=== PATIENT | female | born 1930 | race Caucasian/White ===

== ENCOUNTER 2016-10-01 13:29 | Emergency (ER) | payer MEDICARE, OTHER ==
[~2016-10-01] VITALS: Ht 167.6 cm; Wt 69.0 kg
[~2016-10-01 13:29] MED LIST: ASPI-110 PO; ATOR40TA16 PO; CALC500T42 PO; COEN1CAP PO; FISH1000 PO; HYDR-3533 PO; LISI2.5T3 PO; PROP50TA2 PO
[2016-10-01 13:32] VITALS: BP 138/73; PULSE 86; RESP 18; TEMP 97.6; O2SAT 97
[2016-10-01] MEDS ORDERED: TETANUS/DIPHTHERIA TOXOID ADULT 0.5 ML VIAL IM ONE (14:00)
[2016-10-01] MEDS ORDERED: BUPIVACAINE HCL PF 0.5% 10 ML VIAL INFIL ONE (14:00)
[2016-10-01] MEDS ORDERED: LIDOCAINE HCL 1% 50 ML VIAL INFIL ONE (14:00)
--- NOTE | 2016-10-01 14:00 | PD ---
HPI Chief Complaint: Injury Time Seen by Provider: 13:55 Travel History International Travel<30 days: No Contact w/Intl Traveler<30days: No Traveled to known affect area: No History of Present Illness HPI Patient is an 86-year-old female presenting with right wrist pain after fall. She states she was walking between a car and washing machine when she slipped on a rug and fell. She is unsure the exact mechanism of the hand injury but she has pain in the wrist on the radial side. Some pain in the dorsum of the second third metacarpals and has a laceration over the PIP joint of the second finger of the right hand. Reduced range of motion in the wrist secondary to pain but no range of motion loss in the finger. No elbow or shoulder pain. She denies any weakness or paresthesia. She states she also hit the right side of her head on the washing machine on the way down. She denies loss of consciousness takes aspirin 81 mg daily. She denies any weakness, nausea, vomiting, headache, dizziness, vision change. She denies any neck pain or denies any weakness or paresthesias in her extremity's. Last tetanus vaccine was greater than 5 years. PFSH Past Medical History Hx Anticoagulant Therapy: Yes (BABY ASPIRIN) Autoimmune Disease: No Blood Disorders: No Cancer: Yes (COLON CA 1998) Cardiovascular Problems: No High Cholesterol: Yes Chemotherapy: No Cerebrovascular Accident: No Diabetes: No Diminished Hearing: Yes Endocrine: No Genitourinary: No Hepatitis: Yes ( CHILD) Hiatal Hernia: No Hypertension: Yes Immune Disorder: No Musculoskeletal: Yes (LUMBAR STENOSIS, HERNIATED DISC, OSTEOARTHRITIS) Neurologic: No Psychiatric: No Reproductive: No Respiratory: Yes (COPD) Immunizations Current: Yes Thyroid Disease: Yes (HYPERACTIVE) Tetanus Vaccination: > 5 Years Influenza Vaccination: Yes ?: Not Menopausal: Yes Past Surgical History Abdominal Surgery: Yes (COLON RESECTION, APPENDECTOMY, EXP LAPORATORY) AICD: No Appendectomy: Yes Body Medical Devices: DENTAL IMPLANTS Cardiac Surgery: No Ear Surgery: No Endocrine Surgery: No Eye Surgery: Yes (PIOTR CATARACTS) Genitourinary Surgery: No Gynecologic Surgery: No Hysterectomy: Yes (Partial) Joint Replacement: Yes (RIGHT AND LEFT THR) Oral Surgery: No Pacemaker: No Thoracic Surgery: No Other Surgery: Yes (BILAT HAND) Social History Alcohol Use: No Tobacco Use: No (FORMER) Substance Use: No Allergies-Medications (Allergen,Severity, Reaction): Coded Allergies: No Known Allergies (Verified , 10/01/16) Reported Meds & Prescriptions Reported Meds & Active Scripts Active Lortab (Hydrocodone-Acetaminophen) 5-325 Mg Tab 1 Tab PO Q6H PRN Reported Co Q-10 (Coenzyme Q10 (Ubidecarenone)) 100 Mg Cap 1 Tab PO DAILY Atorvastatin (Atorvastatin Calcium) 40 Mg Tab 40 Mg PO HS Calcium 500 Mg Tab 500 Mg PO DAILY Fish Oil (Cressey-3 Fatty Acids) 1,000 Mg Cap 1 Mg PO DAILY Aspirin 81 (Aspirin) 81 Mg Tabdr 81 Mg PO DAILY Lisinopril 2.5 Mg Tab 2.5 Mg PO DAILY Propylthiouracil 50 Mg Tab 50 Mg PO BID Review of Systems Except as stated in HPI: all other systems reviewed are Neg Physical Exam Narrative GENERAL: Well-developed and well-nourished adult female in no acute distress. SKIN: Occasional minor ecchymosis of bilateral upper extremities. Warm and dry. Good turgor without tenting. HEAD: Normocephalic and atraumatic. Negative huang or raccoon sign. No tenderness, crepitus or step-offs to palpation of the skull. EYES: PERRL bilaterally, 5mm. EOMI bilaterally. No injection or icterus present. No proptosis. Lids without edema or erythema. ENT: Bilateral ear canals are non-edematous/non-erythematous without otorrhea. Bilateral TMs have intact landmarks and without hemotympanum, distortion, perforation, air-fluid level or erythema. Nasal mucosa pink and moist without discharge, septum intact and midline. Buccal mucosa pink and moist. Oropharynx free of erythema, tonsillar hypertrophy, masses, swelling, asymmetry and exudates. Uvula midline and airway patent. NECK: Supple, no midline tenderness, crepitus or step-offs. Normal range of motion. Trachea midline, no JVD. No cervical or facial lymphadenopathy. CARDIOVASCULAR: Regular rate and rhythm without murmurs, rubs, clicks or gallops. Radial pulses 2+ bilaterally. Capillary refill less than 2 seconds distal tip of all fingers of right hand. RESPIRATORY: Clear to auscultation bilaterally with symmetrical rise and fall, no distress or use of accessory muscles. MUSCULOSKELETAL: Patient has some edema dorsum of the right wrist without obvious deformity also ecchymosis over the wrist and the proximal second and third metacarpals. Wrist range of motion in the wrist secondary pain. Diffuse pain with palpation, primarily over the radial aspect of the wrist. No scaphoid tenderness. She can freely move all fingers of the right hand. She has a 1.5 centimeter superficial laceration overlying the dorsal PIP joint of the second digit right hand. Shallow, no foreign bodies or active bleeding. No visible bone or tendon. She can freely flex and extend the digit without difficulty. The pain with palpation of the right elbow or shoulder has normal range of motion at same. Extremities without clubbing or cyanosis. No obvious deformities. NEUROLOGIC: CN II-XII grossly intact. Awake and alert. Strength 5/5 bilateral wrist flexion, wrist extension and flexion extension of all 5 fingers of the right hand. Sensation intact to the distal tip of all fingers of right hand.Sensation intact and strength 5/5 over radial, median, and ulnar nerve distributions bilaterally. Normal speech. PSYCHIATRIC: Appropriate mood and affect; insight and judgment normal. Data Data Last Documented VS Vital Signs Date Time Temp Pulse Resp B/P Pulse Ox O2 Delivery O2 Flow Rate FiO2 10/01/16 13:47 86 18 97 Room Air 10/01/16 13:32 97.6 138/73 Orders Bupivacaine Pf 0.5% Inj (Marcaine Pf 0.5 (10/01/16 14:00) Lidocaine 1% Inj (50 Ml) (Xylocaine 1% I (10/01/16 14:00) Tetanus/Diphtheria Tox Adult (Tetanus/Di (10/01/16 14:00) Hand, Complete ([id number]) (10/01/16 13:52) Wrist, Complete ([id number]) (10/01/16 13:52) Ct Brain W/O Iv Contrast(Rout) (10/01/16 13:52) Splint Or Brace Apply/Monitor (10/01/16 15:27) MDM Medical Decision Making Medical Screen Exam Complete: Yes Emergency Medical Condition: Yes Interpretation(s) Last [address] 10/01/16 1352 Signed Impressions: Service Date/Time: Saturday, October 01, 2016 14:47 - CONCLUSION: 1. No evidence of acute intracranial pathology. No masses are identified. Tyrell Tesfaye MD Differential Diagnosis Wrist fracture versus distal radius fracture versus wrist sprain versus contusion versus metacarpal injury versus finger fracture versus finger laceration versus closed head injury versus skull fracture versus intracranial hemorrhage Narrative Course Patient 78-year-old female who suffered a mechanical fall proximal 1.5 hours prior to exam. Suffered injury to the right wrist on the radial side and the metacarpals of the hand as well as the hip joint of the second finger. There is a small superficial laceration requiring repair, see attached procedure narrative. Tetanus vaccine is updated today. Patient declines analgesia. Patient was given Bactrim ice and ordered x-ray of the wrist, hand and finger. Ordered CT of the head given the head injury and aspirin use although she has no complaints or signs of significant head trauma. CT head shows no acute process. An x-ray negative. Wrist x-ray shows a T-shaped distal radius fragment fracture with intra-articular extension. Ulnar styloid fracture as well. I spoke with Dr. Cramer, on-call orthopedist, who recommended sugar tong splint and follow-up palpation. Patient has another orthopedist that she has had multiple hip and knee surgeries in the past and she will follow up with him. Given prescription for Lortab for pain.See discharge paperwork for further instructions. The plan was discussed with the patient who acknowledged their understanding and agreement. Reinforced the follow-up with primary care is critically important. Patient instructed on emergent conditions that should prompt return to ED. Procedures Procedure Narrative LACERATION LOCATION: Dorsal PIP joint of the second finger right hand LENGTH: 1.5 cm SHAPE: Linear NUMBER OF STITCHES/LARRY: 1 horizontal mattress, 4 simple interrupted REPAIR: The area of the laceration was prepped with Betadine and sterilely draped. A digital block was performed with 2.5 cc of a 50-50 mix of 1% lidocaine and 0.5% lidocaine. The wound was copiously irrigated and explored without evidence of foreign body, tendon injury or neurovascular injury. The wound was closed using 6-0 Prolene. This was a single layer repair. A sterile dressing was applied. The patient was advised to keep the dressing clean and dry. Patient tolerated the procedure well. Diagnosis Primary Impression: Distal radius fracture, right Qualified Code: S52.571A - Other closed intra-articular fracture of distal end of right radius, initial encounter Additional Impressions: Fracture of ulnar styloid Qualified Code: S52.614A - Closed nondisplaced fracture of styloid process of right ulna, initial encounter Finger laceration Qualified Code: S61.219A - Finger laceration, initial encounter Patient Instructions: Finger Laceration (ED), General Instructions, Wrist Fracture in Adults (ED) Additional Instructions: Take medications as prescribed Your medications may cause drowsiness. Do not take with alcohol or sedatives. Do not operate a motor vehicle or heavy machinery while on medication. Use caution when walking to avoid falls Apply ice every 1 to 2 hours as needed for pain Keep splint on at all times. Do NOT remove until cleared. Do not get splint wet Avoid maneuvers that aggravate pain Elevate when at rest Keep bandage on for 24 hours then change daily When changing bandage wash area with soap and water Avoid swimming or submerging wound in any water(bath, patel, pool, ocean, etc) Follow-up with PCP in 10-14 days for suture removal Follow-up with orthopedist in one to 2 days for wrist fracture Return to the ED for any acute worsening of symptoms including swelling, warmth , spreading redness, pustular drainage, fever Med/Other Pt SpecificInfo: Prescription(s) given Scripts Hydrocodone-Acetaminophen (Lortab)5-325 Mg Tab1 Tab PO Q6H PRN (PAIN) #12 TAB Ref 0 Prov:Mirlande Alejo MD 10/01/16 Disposition: 01 DISCHARGE HOME Condition: Stable Will Alvarez III Oct 01, 2016 14:00
--- NOTE | 2016-10-01 15:01 | RADHPO ---
EXAM DATE/TIME: 10/01/2016 14:05 [facility] COMPARISON: No previous studies available for comparison. INDICATIONS: Right hand pain with laceration to 2nd digit after fall. MEDICAL HISTORY: None. SURGICAL HISTORY: None. ENCOUNTER: Initial ACUITY: 2 days PAIN SCORE: 8/10 LOCATION: Right hand FINDINGS: There are degenerative changes present in the carpus. There is minimally impacted fracture of distal radius. Ulnar styloid is fractured as well. There is minimal angulation. CONCLUSION: 1. Impacted fracture distal radius with a T-shaped component extending into the radiocarpal joint. 2. Fractured ulnar styloid. 3. Carpus is intact. Jaime Selby MD FACR on October 01, 2016 at 14:47 Board Certified Radiologist. This report was verified electronically.
--- NOTE | 2016-10-01 15:02 | RADHPO ---
EXAM DATE/TIME: 10/01/2016 14:05 [facility] COMPARISON: No previous studies available for comparison. INDICATIONS: Right wrist pain after fall. MEDICAL HISTORY: None. SURGICAL HISTORY: None. ENCOUNTER: Initial ACUITY: 2 days PAIN SCORE: 8/10 LOCATION: Right wrist FINDINGS: Again seen is the T-shaped impacted fracture of distal radius. Ulnar styloid is fractured as well. Carpus is intact. CONCLUSION: Fractured distal radius. Jaime Selby MD FACR on October 01, 2016 at 14:48 Board Certified Radiologist. This report was verified electronically.
--- NOTE | 2016-10-01 15:06 | RADHPO ---
EXAM DATE/TIME: 10/01/2016 14:47 [facility] COMPARISON: No previous studies available for comparison. INDICATIONS : Fall. Right parietal injury. RADIATION DOSE: 60.77 CTDIvol (mGy) MEDICAL HISTORY : Hypertension. Chronic obstructive pulmonary disease. Carcinoma, colon. SURGICAL HISTORY : Appendectomy. Hysterectomy.Orthopedic surgery. ENCOUNTER: Initial ACUITY: 1 day PAIN SCALE: 0/10 LOCATION: Right parietal TECHNIQUE: Multiple contiguous axial images were obtained of the head. Using automated exposure control and adj ustment of the mA and/or kV according to patient size, radiation dose was kept as low as reasonably a chievable to obtain optimal diagnostic quality images. FINDINGS: Noncontrast axial head CT demonstrates the ventricles to be normal in size and configuration with a n ormal sulcal pattern. No acute intracranial hemorrhage, acute cortical infarction, mass or midline sh ift is seen. There is decreased density in the periventricular white matter consistent with small ves светлана vascular disease not unexpected in a patient of this age. Posterior fossa structures are unremark able. Bone windows are unremarkable. CONCLUSION: 1. No evidence of acute intracranial pathology. No masses are identified. Tyrell Tesfaye MD on October 01, 2016 at 15:02 Board Certified Radiologist. This report was verified electronically.
[2016-10-01] MEDS ORDERED: HYDR-3533 PO (15:28)
== END 2016-10-01 15:57 | disposition home or self-care (01) ==
LOC: PHEFT 13:29
DX: S52.501A Unspecified fracture of the lower end of right radius, initial encounter for closed fracture (principal); W01.0XXA Fall on same level from slipping, tripping and stumbling without subsequent striking against object, initial encounter; Y93.89 Activity, other specified; Y92.9 Unspecified place or not applicable
CPT/HCPCS: 12001; 29125; 70450; 73110; 73130; 90471; 90714

== ENCOUNTER → 2017-05-01 | Outpatient (CLI) | payer MEDICARE, OTHER ==
[~2017-05-01] MED LIST changes: +ASPI-99 PO; +CALC1TAB12 PO; +HYDR-3580 PO
[2017-05-01 09:01] LABS: HEMATOCRIT 39.8 % (35.0-46.0); MEAN CELL VOLUME 94.2 FL (80.0-100.0); MEAN CORPUSCULAR HEMOGLOBIN 31.1 PG (27.0-34.0); PLATELET COUNT 282 TH/MM3 (150-450); RED BLOOD COUNT 4.22 MIL/MM3 (4.00-5.30); RED CELL DISTRIBUTION WIDTH 13.2 % (11.6-17.2); REVIEW FLAG FINAL; WHITE BLOOD COUNT 7.3 TH/MM3 (4.0-11.0)
[2017-05-01 09:11] LABS: APTT (PATIENT) 27.7 SEC (24.3-30.1); PROTHROMBIN TIME - PATIENT 10.6 SEC (9.8-11.6)
[2017-05-01 09:22] LABS: BICARBONATE 26.7 MEQ/L (21.0-32.0); POTASSIUM 4.2 MEQ/L (3.5-5.1)
[2017-05-01 10:47] LABS: BLOOD, URINE NEG (NEG); GLUCOSE,URINE NEG (NEG); KETONE, URINE NEG (NEG); NITRITE,URINE NEG (NEG); URINE COLOR YELLOW (YELLW/STRAW)
[2017-05-01 10:49] LABS: COMMENT (UR) CATH-CULT NOT IND; CULTURE IF INDICATED CATH CULTURE NOT IND
--- NOTE | 2017-05-02 10:07 | EKG ---
Date Performed: 05/01/2017 Time Performed: 08:57:22 PTAGE: 86 years EKG: Sinus rhythm WITH OCCASIONAL SUPRAVENTRICULAR PREMATURE COMPLEXES SEPTAL MYOCARDIAL INFARCTION, OF INDETERMINATE AGE ABNORMAL ECG NO PREVIOUS TRACING DOCTOR: Sergey Etienne Interpretating Date/Time 05/02/2017 10:06:10
== END ==
LOC: CPRE 08:11
PROVIDERS: ATTEND Orthopaedic Surgery
DX: Z01.810 Encounter for preprocedural cardiovascular examination (principal); M79.609 Pain in unspecified limb; M17.11 Unilateral primary osteoarthritis, right knee; Z01.812 Encounter for preprocedural laboratory examination
CPT/HCPCS: 36415; 80048; 81001; 85027; 85610; 85730; 93005

== ENCOUNTER 2017-05-11 07:00 | Inpatient (IN) | payer MEDICARE, OTHER ==
[~2017-05-11] VITALS: Ht 167.6 cm; Wt 69.0 kg
[~2017-05-11 07:00] MED LIST changes: -ASPI-99 PO; -CALC500T42 PO; -HYDR-3533 PO; -HYDR-3580 PO
[2017-06-08] MEDS ORDERED: GENTAMICIN SULFATE 80 MG/2 ML VIAL ONE (05:58)
[2017-06-08] MEDS ORDERED: METOPROLOL TARTRATE 25 MG TAB PO PRN (06:00)
[2017-06-08] MEDS ORDERED: INSULIN HUMAN REGULAR 1,000 UNITS/10 ML VIAL SQ PRN (06:00)
[2017-06-08] MEDS ORDERED: SODIUM CHLORID 0.9% 500 ML IV PRN (06:00)
[2017-06-08] MEDS ORDERED: CHLORHEXIDINE GLUCONATE 2 % 1 PACK (2 CLOTHS) TOPICAL PRN (06:00)
[2017-06-08] MEDS ORDERED: ceFAZolin 2 GM PREMIX 50 ML IV SCH (06:00)
[2017-06-08] MEDS ORDERED: LACTATED RINGER'S 1000 ML IV PRN (06:00)
[2017-06-08] MEDS ORDERED: POVIDONE IODINE 5% (ANTISEPSIS KIT) 4 APPLICATIONS EACH NARE PRN (06:00)
[2017-06-08] MEDS ORDERED: CHLORHEXIDINE GLUCONATE 4% SOLN 120 ML BTL TOPICAL SCH (06:00)
[2017-06-08 06:25] LABS: AUTOMATED NEUTROPHIL # 5.1 TH/MM3 (1.8-7.7); BASOPHIL # 0.1 TH/MM3 (0-0.2); BASOPHIL % 1.1 % (0.0-2.0); EOSINOPHIL # 0.2 TH/MM3 (0-0.4); EOSINOPHIL % 1.8 % (0.0-4.0); HEMATOCRIT 40.7 % (35.0-46.0); HEMO FLAGS DIFF FINAL; LYMPH % 27.4 % (9.0-44.0); LYMPHOCYTE # 2.4 TH/MM3 (1.0-4.8); MEAN CELL VOLUME 93.6 FL (80.0-100.0); MEAN CORPUSCULAR HEMOGLOBIN 31.6 PG (27.0-34.0); MEAN CORPUSCULAR HGB CONC 33.7 % (32.0-36.0); MONO % 10.2 % (0.0-8.0); NEUT % 59.5 % (16.0-70.0); PLATELET COUNT 317 TH/MM3 (150-450); RED BLOOD COUNT 4.35 MIL/MM3 (4.00-5.30); WHITE BLOOD COUNT 8.6 TH/MM3 (4.0-11.0)
[2017-06-08] MEDS ORDERED: ACETAMINOPHEN 1000 MG/100 ML 100 ML IV ONE (06:34)
[2017-06-08] MEDS ORDERED: ONDANSETRON HCL 4 MG/2 ML VIAL IVP PRN (06:45)
[2017-06-08] MEDS ORDERED: ACETAMINOPHEN/HYDROcodone 325 MG/7.5 MG TAB PO PRN ×2 (06:45)
[2017-06-08] MEDS ORDERED: MORPHINE SULFATE 4 MG/ML INJ IV PUSH PRN (06:45)
[2017-06-08] MEDS ORDERED: TRANEXAMIC ACID INJ 0 MG in SODIUM CHLORIDE 0.9% INJ 100 ML IV SCH (06:45)
[2017-06-08] MEDS ORDERED: SODIUM CHLORIDE 0.9% FLUSH 5 ML FLUSH IVF PRN (06:45)
[2017-06-08] MEDS ORDERED: Post-op Orders (for Pharmacy) MISC XX ONE (06:45)
--- NOTE | 2017-06-08 06:48 | HHI.FF ---
Face to Face Verification Diagnosis: (1) Primary osteoarthritis of right knee (2) Status post total right knee replacement Physical Therapy Gait training Knee: Total knee, Protocol: Right, Full weight bearing Right LE Weight Bearing: WB as tolerated Right LE Range of Motion: Active ROM (AROM, AAROM, PROM. ROM goal is 0 to 140 degrees. ROM in the OR was 0 to 150 degrees.) Nursing Nursing: Dressing changes Dressing Changes: Daily dressing change, Coverderm/Primapore Additional Instructions Remove steristrips on postop day 14. I have seen patient Minerva Stein on 06/08/17. My clinical findings support the need for the requested home health care services because: Ltd mobility - disease progression Limited ability to care for self High risk of falls I certify that my clinical findings support that this patient is homebound because: Post-op weakness Unsteady gait/balance Unsafe to leave home unassisted Alexandra Victor MD ([facility]) Jun 08, 2017 06:48
[2017-06-08] MEDS ORDERED: TRANEXAMIC ACID IV SCH ×2 (07:00→10:00)
[2017-06-08] MEDS ORDERED: EXPAREL PERI-ARTICULAR INJECTION (TOTAL VOL. 100 ML) P-ARTICULR SCH ×2 (07:00)
[2017-06-08] MEDS ORDERED: SODIUM CHLORIDE 0.9% IV SCH ×2 (07:00→10:00)
[2017-06-08] MEDS ORDERED: ASPI-99 PO (08:40)
--- NOTE | 2017-06-08 08:52 | HHI.PR ---
Immediate Post Op Note Procedure Date: Jun 08, 2017 Pre Op Diagnosis: (1) Primary osteoarthritis of right knee Post Op Diagnosis: (1) Primary osteoarthritis of right knee Surgeon: Bala Victor Coder(s): Prateek Molina Procedure: Right Total knee arthroplasty with Karon Triathlon prosthesis (uncemented) Estimated blood loss: 150 ml Anesthesia: Regional Block, Spinal Drains: Hemovac (2) IVF Tourniquet time (min at mmHg) 0 min. @250 mmHg Patient to: PACU Patient Condition: Good Implant/Devices: SEE IMPLANT LOG (if applicable) Date/Time of Procedure: SEE SURGICAL CARE RECORD Alexandra Victor MD ([facility]) Jun 08, 2017 08:52
[2017-06-08] MEDS ORDERED: FATTY ACIDS PO SCH (09:00)
[2017-06-08] MEDS: PROPYLTHIOURACIL 50 MG TAB PO SCH ×2 (09:00→22:53)
[2017-06-08] MEDS ORDERED: OMEGA PO SCH (09:00)
[2017-06-08] MEDS ORDERED: COENZYME Q10 PO SCH (09:00)
[2017-06-08] MEDS: CALCIUM/VITAMIN D 250 MG/125 U TAB PO SCH (09:00)
[2017-06-08] MEDS ORDERED: DO NOT ADM ANY ANTICOAGULANT DRUGS PRN (09:04)
[2017-06-08] MEDS: SODIUM CHLORIDE 0.9% FLUSH 5 ML FLUSH IVF SCH ×2 (09:34→19:35)
[2017-06-08] MEDS: LACTATED RINGER'S 1000 ML INJ 1,000 ML IV SCH ×2 (09:34→19:13)
--- NOTE | 2017-06-08 09:40 | RADRPT ---
EXAM DATE/TIME: 06/08/2017 09:12 [facility] COMPARISON: No previous studies available for comparison. INDICATIONS : Post op right total knee. MEDICAL HISTORY : None. SURGICAL HISTORY : None. ENCOUNTER: Initial ACUITY: 1 day PAIN SCORE: 7/10 LOCATION: Right Knee FINDINGS: AP and lateral views of the knee following arthroplasty reveals a prosthesis in anatomic alignment. F racture is not appreciated. Surgical drain is evident CONCLUSION: Status post total knee arthroplasty. Jaime Selby MD FACR Board Certified Radiologist. This report was verified electronically.
--- NOTE | 2017-06-08 09:41 | MP ---
cc: Sid SALINAS. DATE OF SURGERY 06/08/2017 PREOPERATIVE DIAGNOSIS Primary osteoarthritis right knee. POSTOPERATIVE DIAGNOSIS Primary osteoarthritis right knee. OPERATION PERFORMED Right total knee arthroplasty using Karon Triathlon prosthesis (uncemented). SURGEON Farrukh Salinas MD ANESTHESIA Spinal and adductor canal block regional by Dr. Ramirez with supplemental local by the undersigned. INDICATIONS AND FINDINGS This 86-year-old woman has had longstanding arthritis in her right knee which has progressively worsened to the point that she has difficulty walking. She has used anti-inflammatory agents in the past and has had other conservative measures including activity modification, external supports, exercises and the like. She has not responded to conservative measures. Physical findings showed significant arthritis in the knee with palpable osteophytes, crepitation and effusion and medial laxity. X-rays showed primary osteoarthritis with osteophytes, subchondral sclerosis, loss of joint space to [id number] in the medial compartment. Operative findings showed severe osteoarthritis with loss of articular cartilage to [id number], subchondral sclerosis particularly in the medial compartment with significant medial osteophytes and tricompartmental cartilage loss. PROSTHESIS USED Karon Triathlon prosthesis with the femur being a size 4 cruciate-retaining uncemented, the tibia being a size 5 Tritanium baseplate with an 11 mm cruciate-retaining spacer of X3 polyethylene and the patella being a Tritanium backed asymmetric patella size 32 mm. PROCEDURE The patient was brought to the clean-air operating suite and a spinal anesthetic was administered by Dr. Ramirez followed by an adductor canal block. The patient was then positioned into supine position on the operating table with a bump under the right hip and a pneumatic tourniquet about the right thigh. The limb was then prepped with alcohol, Hibiclens and Chloraprep and draped in the usual manner with the knee draped free. An appropriate time-out procedure was carried out. The incision site was injected with Exparel. An anterior incision was then made from about three fingerbreadths above the superior medial pole of patella down to the tibial tubercle. The incision was deepened through the subcutaneous tissues to the retinacular structures which were exposed medially and laterally. A medial retinacular incision was made from the superior medial pole of the patella down to the tibial tubercle. This was then extended up into the quadriceps tendon splitting it longitudinally in the medial one-third. The patella was then reflected. Medial and lateral dissection was carried out. The infrapatellar fat pad was debulked. The posterior surface of the patella was excised with the oscillating saw taking care to prevent injury to ligamentous structures. The patella was then covered with the patella protector. The patella was slipped into the lateral gutter. With the knee flexed, fenestrations were made in the distal end of the femur and proximal end of the femur with the appropriate drill for intramedullary referencing guides. The distal femoral cutting guide and jig were assembled for a 5-degree, 8-mm cut. The distal femoral cut was completed with the oscillating saw after removal of the jig. The sizing guide was positioned in place along Whitesides line and the epicondylar axis. This was stabilized with pins. The size was determined to be between a size 4 and a size 5 but the 5 looked too wide, therefore a size 4 was used. The cutting block was then positioned in place after removal of the sizing guide. Anterior and posterior cuts were made followed by posterior and anterior chamfer cuts. Osteophytes were trimmed from the femur. Medial and lateral meniscectomies were completed. The anterior cruciate ligament was excised. With the proximal tibia exposed, the intramedullary referencing guide was positioned and stabilized for rotation. The proximal tibial cutting block was stabilized with pins using the stylus. The jig was removed. The depth of cut was verified and adjusted with the spacer block. The proximal tibia but was completed with the oscillating saw. The spacer block was again used to verify appropriate depth of cut. The tibial baseplate size was determined to be a size 5. Exparel was injected about the posterior capsule and medially and laterally capsules. The size 5 tibial baseplate with an 11-mm spacer was inserted, followed by the size 4 femoral component. The tibial baseplate was stabilized with pins. The patellar drill guide was positioned for the 32-mm patella. Drill holes were made. The patella trial was positioned in place. The knee was taken through a range of motion which was easily 0 degrees extension to 150 degrees of flexion with excellent stability throughout the range of motion. The patella trial was removed. The femoral drill holes were made, followed by removal of the femoral trial. The tibial spacer was removed. Bone plug was placed in the distal femur and proximal tibial fenestrations. The tibial punch was impacted through its guide and then removed. The tibial drill guide was positioned and drill holes made. The cut ends of bone were cleaned with pulse lavage. The tibial baseplate was impacted into place and seated appropriately. The tibial spacer was inserted and impacted into place. The femoral component was impacted into place and seated appropriately. The patella prosthesis was positioned in place and seated with the patella vice. Wound closure then commenced using 0 Vicryl interrupted [id number] sutures for the retinacular structures, 2-0 Vicryl interrupted simple sutures with buried knots for the subcutaneous tissues and 4-0 Monocryl continuous subcuticular closure for the skin. The wound was dressed with Steri-Strips, followed by dry dressing, sterile Sof-Rol, cooling pad, further sterile Sof-Rol and Bowen bandage from the base the toes to the mid-thigh. The patient was transferred from the operating room to the recovery room in satisfactory condition having tolerated the procedure well. COUNTS Correct. SPECIMENS None. ESTIMATED BLOOD LOSS 150 mL. MD JANIE Moran/SHEKHAR /8:55 AM /9:08 AM
[2017-06-08] MEDS: KETOROLAC TROMETHAMINE 30 MG/ML (IVP) VIAL IVP SCH ×3 (09:55→22:53)
[2017-06-08] MEDS ORDERED: *ENALAPRILAT 1.25 MG/ML VIAL PERIprocedural Use ONLY ONE (10:00)
[2017-06-08] MEDS: LISINOPRIL 5 MG TAB PO SCH (10:33)
[2017-06-08] MEDS ORDERED: ONDANSETRON HCL 4 MG/2 ML VIAL IV PUSH ONE (12:00)
[2017-06-08] MEDS ORDERED: PROPOFOL 200 MG/20 ML AMP IV ONE (12:00)
[2017-06-08] MEDS ORDERED: PHENYLEPH/NS 1000 MCG/10 ML SYR IV ONE (12:00)
[2017-06-08] MEDS ORDERED: DEXAMETHASONE SOD PHOS 4 MG/ML VIAL IV ONE (12:00)
[2017-06-08 16:00] VITALS: BP 148/79; PULSE 68; RESP 18; TEMP 96.5; O2SAT 98
--- NOTE | 2017-06-08 17:19 | PD.CONS ---
HPI Service [facility] Hospitalists Consult Requested By Dr Victor, orthopedics Reason for Consult Medical management. Primary Care Physician Sagar Yeung MD Diagnoses: (1) Status post total right knee replacement (2) HTN (hypertension) (3) Hyperlipidemia (4) Hyperthyroidism History of Present Illness Written by Bora Pulliam PA-C, acting as scribe for Dr. Ruby Farmer on 06/08/17 at 17:19. Ms. Stein is 86 yo, who underwent total right knee replacement on June 08, [address] Bala Victor who consulted Hospitalist team to medically manage pt's hypertension, hyperthyroidism, and hyperlipidemia. Additionally, pt has history of colon cancer that was resected several years ago. She had an ostomy that was reversed. At time of interview, pt was laying a bed, reported her pain was "well controlled" and rated it as 0/10. She denied fever, cough, shortness of breath, chest/abdominal pain, NVD, or altered bowel/bladder issues. Review of Systems Except as stated in HPI: all other systems reviewed are Neg Past Family Social History Allergies: Coded Allergies: No Known Allergies (Verified , 06/08/17) Past Medical History hyperlipidemia hyperthyroidism colon cancer Past Surgical History Colectomy. ostomy with reversal. Rotator cuff surgery. Bilateral hip replacement broken right wrist repair back surgery. Reported Medications Reported Meds & Active Scripts Active Reported Calcium 500 +D (Calcium Carbonate-Cholecalciferol) 500-400 Mg-Unit Tab 1 Tab PO DAILY Co Q-10 (Coenzyme Q10 (Ubidecarenone)) 100 Mg Cap 1 Tab PO DAILY Atorvastatin (Atorvastatin Calcium) 40 Mg Tab 40 Mg PO HS Fish Oil ([place]-3 Fatty Acids) 1,000 Mg Cap 1 Mg PO DAILY Aspirin 81 (Aspirin) 81 Mg Tabdr 81 Mg PO DAILY Lisinopril 2.5 Mg Tab 2.5 Mg PO DAILY Propylthiouracil 50 Mg Tab 50 Mg PO BID Active Ordered Medications Current Medications Medications (Trade) Dose Ordered Sig/Gold Route Start Time Stop Time Status Last Admin Sodium Chloride 500 ml @ 30 mls/hr [id number] PRN IV 06/08/17 06:00 06/11/17 05:59 (Lopressor) 25 mg [employer]ER PRN PO 06/08/17 06:00 06/11/17 05:59 (Betadine 5% Antisepsis Kit) 1 applic [employer]ER PRN EACH NARE 06/08/17 06:00 06/11/17 05:59 06/08/17 05:50 (Chlorhexidine 2% Cloth) 3 pack [employer]ER PRN TOPICAL 06/08/17 06:00 06/11/17 05:59 06/08/17 05:35 (NovoLIN R INJ) See Protocol Table ... [employer]SEM[employer]ER PRN SQ 06/08/17 06:00 06/11/17 05:59 (Hibiclens 4% Top Soln) 1 applic ONCE TOPICAL 06/08/17 06:00 06/11/17 05:59 06/08/17 05:45 Cefazolin Sodium/ Dextrose 50 ml @ 100 mls/hr [employer]ER IV 06/08/17 06:00 06/09/17 05:59 06/08/17 07:40 Lactated Ringer's 1,000 ml @ 80 mls/hr [id number] IV 06/08/17 06:43 06/08/17 09:34 (NS Flush) 2 ml UNSCH PRN IVF 06/08/17 06:45 (NS Flush) 2 ml BID IVF 06/08/17 09:00 06/08/17 09:34 Cefazolin Sodium 1000 mg/Sodium Chloride 100 ml @ 200 mls/hr Q6H IV 06/08/17 14:00 06/09/17 02:29 06/08/17 13:22 (Morphine Inj) 4 mg Q3H PRN IV PUSH 06/08/17 06:45 ([place] 7.5-325 Mg) 1 tab Q4H PRN PO 06/08/17 06:45 ([place] 7.5-325 Mg) 2 tab Q4H PRN PO 06/08/17 06:45 (Toradol Inj) 15 mg Q6H IVP 06/08/17 10:00 06/10/17 04:01 06/08/17 09:55 (Zofran Inj) 4 mg Q6H PRN IVP 06/08/17 06:45 (Colace) 100 mg BID PO 06/09/17 21:00 (Ambien) 5 mg HS PRN PO 06/08/17 21:00 (Milk Of Magnesia Liq) 30 ml DAILY PRN PO 06/08/17 06:45 (Ecotrin Ec) 81 mg BID PO 06/09/17 08:00 (Lipitor) 40 mg HS PO 06/08/17 21:00 (Ptu) 50 mg BID PO 06/08/17 09:00 (Oscal-D 250-125) 2 mg DAILY PO 06/08/17 09:00 (Prinivil) 2.5 mg DAILY PO 06/08/17 09:00 06/08/17 10:33 Miscellaneous Information ALL NURSING DEPARTME... UNSCH PRN .XX 06/08/17 09:04 06/09/17 09:03 (Pneumovax-23 Inj) 25 mcg ONCE ONCE IM 06/09/17 10:00 06/09/17 10:01 (Flu (Quadrivalent) Vaccine Inj) 0.5 ml ONCE ONCE IM 06/09/17 10:00 06/09/17 10:01 Family History Father- of complications from emphysema Mother- of complications from Alzheimer's. Sister with cancer which pt was "unsure of what kind." Social History Pt reported smoking 1 ppd of cigarettes from age [age]; stated she has not smoked in 37 years. She denied alcohol use. illicit/recreational drug use was denied. Physical Exam Vital Signs Vital Signs Date Time Temp Pulse Resp B/P (MAP) Pulse Ox O2 Delivery O2 Flow Rate FiO2 06/08/17 15:30 78 17 134/65 (88) 97 Room Air 06/08/17 15:00 98.2 75 19 150/72 (98) 97 Room Air 06/08/17 14:00 76 18 148/73 (98) 97 Nasal Cannula 2 06/08/17 13:00 68 20 114/66 (82) 97 Nasal Cannula 2 06/08/17 12:30 71 20 114/59 (77) 100 Nasal Cannula 2 06/08/17 12:00 75 17 172/83 (112) 97 Nasal Cannula 2 06/08/17 11:30 71 16 174/83 (113) 97 Nasal Cannula 2 06/08/17 11:00 73 13 178/79 (112) 97 Nasal Cannula 2 06/08/17 10:30 77 17 176/80 (112) 100 Nasal Cannula 2 06/08/17 10:15 69 15 175/76 (109) 100 Nasal Cannula 2 06/08/17 10:00 63 14 182/83 (116) 100 Nasal Cannula 2 06/08/17 09:45 60 15 167/88 (114) 100 Nasal Cannula 2 06/08/17 09:30 74 17 158/81 (106) 99 Nasal Cannula 2 06/08/17 09:15 68 13 147/74 (98) 100 Nasal Cannula 2 06/08/17 09:08 97.5 69 16 166/74 (104) 96 Nasal Cannula 2 06/08/17 06:02 96.8 72 16 140/75 (96) 95 Physical Exam GENERAL: This is a well-nourished, well-developed patient, in no apparent distress. SKIN: No rashes, ecchymoses or lesions. Cool and dry. Right leg wrapped in Kerlix covering surgical site. HEAD: Atraumatic. Normocephalic. No temporal or scalp tenderness. EYES: Pupils equal round and reactive. Extraocular motions intact. No scleral icterus. No injection or drainage. ENT: Nose without bleeding or purulent drainage. Airway patent. NECK: Trachea midline. No JVD or lymphadenopathy. Supple and nontender. CARDIOVASCULAR: Regular rate and rhythm without murmurs, gallops, or rubs. RESPIRATORY: Clear to auscultation. Breath sounds equal bilaterally. No wheezes , rales, or rhonchi. GASTROINTESTINAL: Abdomen soft, non-tender, nondistended. No hepato- splenomegaly or guarding. MUSCULOSKELETAL: Extremities without clubbing, cyanosis, or edema. NEUROLOGICAL: Awake and alert. Cranial nerves II through XII intact. Motor and sensory grossly within normal limits. Five out of 5 muscle strength in all muscle groups except right leg which was not evaluated. She moved right toes on command. Speech was clear and fluent. Laboratory Laboratory Tests Test 06/08/17 05:50 White Blood Count 8.6 Red Blood Count 4.35 Hemoglobin 13.7 Hematocrit 40.7 Mean Corpuscular Volume 93.6 Mean Corpuscular Hemoglobin 31.6 Mean Corpuscular Hemoglobin Concent 33.7 Red Cell Distribution Width 13.0 Platelet Count 317 Mean Platelet Volume 9.2 Neutrophils (%) (Auto) 59.5 Lymphocytes (%) (Auto) 27.4 Monocytes (%) (Auto) 10.2 Eosinophils (%) (Auto) 1.8 Basophils (%) (Auto) 1.1 Neutrophils # (Auto) 5.1 Lymphocytes # (Auto) 2.4 Monocytes # (Auto) 0.9 Eosinophils # (Auto) 0.2 Basophils # (Auto) 0.1 CBC Comment DIFF FINAL Differential Comment Result Diagram: 06/08/17 0550 Imaging Last Impressions Knee X-Ray 06/08/17 0643 Signed Impressions: Service Date/Time: Thursday, June 08, 2017 09:12 - CONCLUSION: Status post total knee arthroplasty. Jaime Selby MD Assessment and Plan Assessment and Plan Ms. Stein is 86 yo, who underwent total right knee replacement on June 08, [address] Bala Victor who consulted Hospitalist team to medically manage pt's hypertension, hyperthyroidism, and hyperlipidemia. Additionally, pt has history of colon cancer that was resected several years ago. She had an ostomy that was reversed. S/p total right knee arthroplasty -Pain management per Orthopedics -PT/OT per Orthopedics Hypertension Hyperlipidemia - Lisinopril 2.5 mg po daily -Atorvastatin 40 mg po q hs Hyperthyroidism -Propylthiouracil 50 mg po twice daily DVT prophylaxis -Per Orthopedics Discussed Condition With patient. This note was transcribed by scribe [Bora Pulliam ]. I, Dr. Alfonso Farmer personally performed the history, physical exam, and medical decision making; and confirmed the accuracy of the information in the transcribed note. Authenticated by Dr. Alfonso Farmer 06/08/17 at 17:19. Problem Qualifiers (1) HTN (hypertension): Qualified Codes: I10 - Essential (primary) hypertension (2) Hyperlipidemia: Qualified Codes: E78.5 - Hyperlipidemia, unspecified Bora Pulliam Jr. Jun 08, 2017 17:19 Alfonso Farmer MD Jun 08, 2017 17:19
[2017-06-08] MEDS: MAGNESIUM HYDROXIDE SUSP 30 ML CUP PO PRN (19:34)
[2017-06-08] MEDS: ATORVASTATIN 40 MG TAB PO SCH (19:34)
[2017-06-08 20:00] VITALS: BP 127/66; PULSE 82; RESP 17; TEMP 96; O2SAT 97
[2017-06-08] MEDS ORDERED: ZOLPIDEM TARTRATE 5 MG TAB PO PRN (21:00)
[2017-06-09] VITALS (8 sets, daily range): BP systolic 97–153; BP diastolic 56–79; PULSE 66–88; RESP 14–18; TEMP 95.3–97.1; O2SAT 92–97
[2017-06-09] MEDS: LACTATED RINGER'S 1000 ML INJ 1,000 ML IV SCH ×2 (01:30→19:17)
[2017-06-09] MEDS: KETOROLAC TROMETHAMINE 30 MG/ML (IVP) VIAL IVP SCH ×4 (04:00→21:08)
--- NOTE | 2017-06-09 06:33 | PD.ORT.PN ---
Subjective Post Op Day #: 1 Subjective Remarks She is doing well with no pain. She did well with PT. Range of Motion -3 to 115 degrees. Distance Walked 70 feet with PT. Objective Vitals Vital Signs Date Time Temp Pulse Resp B/P (MAP) Pulse Ox O2 Delivery O2 Flow Rate FiO2 06/09/17 04:21 95 06/09/17 04:00 96.3 76 14 153/79 (103) 95 06/09/17 00:00 96.8 71 18 124/69 (87) 95 06/08/17 20:00 96.0 82 17 127/66 (86) 97 06/08/17 16:00 96.5 68 18 148/79 (102) 98 06/08/17 15:30 78 17 134/65 (88) 97 Room Air 06/08/17 15:00 98.2 75 19 150/72 (98) 97 Room Air 06/08/17 14:00 76 18 148/73 (98) 97 Nasal Cannula 2 06/08/17 13:00 68 20 114/66 (82) 97 Nasal Cannula 2 06/08/17 12:30 71 20 114/59 (77) 100 Nasal Cannula 2 06/08/17 12:00 75 17 172/83 (112) 97 Nasal Cannula 2 06/08/17 11:30 71 16 174/83 (113) 97 Nasal Cannula 2 06/08/17 11:00 73 13 178/79 (112) 97 Nasal Cannula 2 06/08/17 10:30 77 17 176/80 (112) 100 Nasal Cannula 2 06/08/17 10:15 69 15 175/76 (109) 100 Nasal Cannula 2 06/08/17 10:00 63 14 182/83 (116) 100 Nasal Cannula 2 06/08/17 09:45 60 15 167/88 (114) 100 Nasal Cannula 2 06/08/17 09:30 74 17 158/81 (106) 99 Nasal Cannula 2 06/08/17 09:15 68 13 147/74 (98) 100 Nasal Cannula 2 06/08/17 09:08 97.5 69 16 166/74 (104) 96 Nasal Cannula 2 I/O 06/08/17 06/08/17 06/08/17 06/09/17 06/09/17 06/09/17 07:00 15:00 23:00 07:00 15:00 23:00 Intake Total 15 ml 848 ml 480 ml Output Total 430 ml 210 ml 120 ml Balance -415 ml 638 ml 360 ml Intake Oral 15 ml 495 ml 480 ml IV Total 0 ml 353 ml Output Drainage Total 280 ml 210 ml 120 ml Other 150 ml # Voids 3 3 # Bowel Movements 0 Result Diagram: 06/08/17 0550 Imaging Last 24 hours Impressions Knee X-Ray 06/08/1743 Signed Impressions: Service Date/Time: Thursday, June 08, 2017 09:12 - CONCLUSION: Status post total knee arthroplasty. Jaime Selby MD Objective Remarks She is resting comfortably, supine in bed in the CPM. The dressing is dry and intact. The neurovascular status is intact. Assessment & Plan Ortho Post Op Day #: 1 Problem List: (1) Status post total right knee replacement ICD Codes: Z96.651 - Presence of right artificial knee joint Plan: Continue PT and postop care. Assessment and Plan Condition: Good. Orthopaedically stable. DVT prophylaxis: ASA, TEDs, sequentials. Discharge plans: Home with HHC versus CIR versus [facility] for rehab. Has appointment. Alexandra Victor MD (Charles) Jun 09, 2017 06:33
[2017-06-09 06:58] LABS: HEMATOCRIT 30.3 % (35.0-46.0); REVIEW FLAG FINAL
[2017-06-09] MEDS: ASPIRIN EC 81 MG TABEC PO SCH ×2 (08:45→21:07)
[2017-06-09] MEDS: CALCIUM/VITAMIN D 250 MG/125 U TAB PO SCH (08:45)
[2017-06-09] MEDS: PROPYLTHIOURACIL 50 MG TAB PO SCH ×2 (08:45→21:08)
[2017-06-09] MEDS: SODIUM CHLORIDE 0.9% FLUSH 5 ML FLUSH IVF SCH ×2 (08:46→21:00)
[2017-06-09] MEDS: LISINOPRIL 5 MG TAB PO SCH (08:47)
[2017-06-09] MEDS ORDERED: INFLUENZA VIRUS VACCINE (QUADRIVALENT) 0.5 ML SYR IM ONE (10:00)
[2017-06-09] MEDS ORDERED: PNEUMOCOCCAL POLYVALENT INJ 25 MCG/0.5 ML SYR IM ONE (10:00)
--- NOTE | 2017-06-09 14:26 | HHI.PR ---
Subjective Remarks patient stable, she denies any chest pain or short of breath or dizziness despite dropping hemoglobin from 13-10, mostly postop anemia Objective Vitals Vital Signs Date Time Temp Pulse Resp B/P (MAP) Pulse Ox O2 Delivery O2 Flow Rate FiO2 06/09/17 12:00 95.3 66 18 98/56 (70) 95 06/09/17 08:52 96 06/09/17 08:00 95.7 77 18 150/76 (100) 95 06/09/17 04:21 95 06/09/17 04:00 96.3 76 14 153/79 (103) 95 06/09/17 00:00 96.8 71 18 124/69 (87) 95 06/08/17 20:00 96.0 82 17 127/66 (86) 97 06/08/17 16:00 96.5 68 18 148/79 (102) 98 06/08/17 15:30 78 17 134/65 (88) 97 Room Air 06/08/17 15:00 98.2 75 19 150/72 (98) 97 Room Air I/O 06/08/17 06/08/17 06/08/17 06/09/17 06/09/17 06/09/17 07:00 15:00 23:00 07:00 15:00 23:00 Intake Total 15 ml 948 ml 1747 ml Output Total 430 ml 210 ml 120 ml Balance -415 ml 738 ml 1627 ml Intake Oral 15 ml 495 ml 480 ml IV Total 0 ml 453 ml 1267 ml Output Drainage Total 280 ml 210 ml 120 ml Other 150 ml # Voids 3 3 # Bowel Movements 0 Result Diagram: 06/09/17 0610 Objective Remarks GENERAL: This is a well-nourished, well-developed patient, in no apparent distress. CARDIOVASCULAR: Regular rate and rhythm without murmurs, gallops, or rubs. RESPIRATORY: Clear to auscultation. Breath sounds equal bilaterally. No wheezes , rales, or rhonchi. GASTROINTESTINAL: Abdomen soft, non-tender, nondistended. Normal active bowel sounds MUSCULOSKELETAL: Extremities without clubbing, cyanosis, or edema. NEURO: Alert & Oriented x4 to person, place, time, situation. Moves all ext x4 A/P Problem List: (1) Status post total right knee replacement ICD Code: Z96.651 - Presence of right artificial knee joint (2) HTN (hypertension) ICD Code: I10 - HTN (hypertension) Status: Chronic (3) Hyperlipidemia ICD Code: E78.5 - Hyperlipidemia Status: Chronic (4) Hyperthyroidism ICD Code: E05.90 - Hyperthyroidism Status: Chronic Assessment and Plan Ms. Stein is 86 yo, who underwent total right knee replacement on June 08, [address] Bala Victor who consulted Hospitalist team to medically manage pt's hypertension, hyperthyroidism, and hyperlipidemia. Additionally, pt has history of colon cancer that was resected several years ago. She had an ostomy that was reversed. S/p total right knee arthroplasty -Pain management per Orthopedics -PT/OT per Orthopedics acute anemia mostly postop hemoglobin dropped from 13-10, repeat H&H in a.m. Hypertension Hyperlipidemia - Lisinopril 2.5 mg po daily -Atorvastatin 40 mg po q hs Hyperthyroidism -Propylthiouracil 50 mg po twice daily DVT prophylaxis -Per Orthopedics Problem Qualifiers (1) HTN (hypertension): Qualified Codes: I10 - Essential (primary) hypertension (2) Hyperlipidemia: Qualified Codes: E78.5 - Hyperlipidemia, unspecified Alfonso Farmer MD Jun 09, 2017 14:26
[2017-06-09] MEDS: ATORVASTATIN 40 MG TAB PO SCH (21:07)
[2017-06-09] MEDS: DOCUSATE SODIUM 100 MG CAP PO SCH (21:08)
[2017-06-10] VITALS: BP 154/74; PULSE 88; RESP 17; TEMP 97.9; O2SAT 96
[2017-06-10 04:00] VITALS: BP 143/79; PULSE 80; RESP 17; TEMP 96.5; O2SAT 96
[2017-06-10] MEDS: KETOROLAC TROMETHAMINE 30 MG/ML (IVP) VIAL IVP SCH (05:06)
[2017-06-10 06:12] LABS: HEMATOCRIT 30.1 % (35.0-46.0); REVIEW FLAG FINAL
--- NOTE | 2017-06-10 06:22 | PD.ORT.PN ---
Subjective Post Op Day #: 2 Subjective Remarks She is still doing well with no pain. She did well with PT. Range of Motion 0 to 117 degrees. Distance Walked 200 feet with PT. Objective Vitals Vital Signs Date Time Temp Pulse Resp B/P (MAP) Pulse Ox O2 Delivery O2 Flow Rate FiO2 06/10/17 04:00 96.5 80 17 143/79 (100) 96 06/10/17 00:00 97.9 88 17 154/74 (100) 96 06/09/17 19:00 97.1 78 14 97/65 (76) 92 06/09/17 16:00 95.9 88 18 119/63 (81) 97 06/09/17 12:00 95.3 66 18 98/56 (70) 95 06/09/17 08:52 96 06/09/17 08:00 95.7 77 18 150/76 (100) 95 I/O 06/09/17 06/09/17 06/09/17 06/10/17 06/10/17 06/10/17 06:59 14:59 22:59 06:59 14:59 22:59 Intake Total 1747 ml 600 ml 480 ml 480 ml Output Total 120 ml 300 ml 80 ml 80 ml Balance 1627 ml 300 ml 400 ml 400 ml Intake Oral 480 ml 600 ml 480 ml 480 ml IV Total 1267 ml Output Drainage Total 120 ml 300 ml 80 ml 80 ml # Voids 3 2 2 1 # Bowel Movements 1 0 0 Result Diagram: 06/10/17 0533 Imaging Last 24 hours Impressions Knee X-Ray 06/08/17 0643 Signed Impressions: Service Date/Time: Thursday, June 08, 2017 09:12 - CONCLUSION: Status post total knee arthroplasty. Jaime Selby MD Objective Remarks She is resting comfortably, supine in bed in the CPM. The dressing is dry and intact. The neurovascular status is intact. Assessment & Plan Ortho Post Op Day #: 2 Problem List: (1) Status post total right knee replacement ICD Codes: Z96.651 - Presence of right artificial knee joint Plan: Continue PT and postop care. Assessment and Plan Condition: Good. Orthopaedically stable. DVT prophylaxis: ASA, TEDs, sequentials. Discharge plans: Home with HHC versus [facility] for rehab. I again discussed benefits/risks regarding home versus SNF. Has appointment. Rx: [place] 7.5/325. Alexandra Victor MD ([place]) Jun 10, 2017 06:22
[2017-06-10 08:00] VITALS: BP 175/78; PULSE 91; RESP 16; TEMP 96.2; O2SAT 95
[2017-06-10] MEDS ORDERED: HYDR-3580 PO (08:29)
[2017-06-10] MEDS: LACTATED RINGER'S 1000 ML INJ 1,000 ML IV SCH ×2 (08:43→21:13)
[2017-06-10] MEDS: SODIUM CHLORIDE 0.9% FLUSH 5 ML FLUSH IVF SCH ×2 (09:00→22:39)
[2017-06-10] MEDS: PROPYLTHIOURACIL 50 MG TAB PO SCH ×2 (09:04→22:39)
[2017-06-10] MEDS: ASPIRIN EC 81 MG TABEC PO SCH ×2 (09:05→22:39)
[2017-06-10] MEDS: CALCIUM/VITAMIN D 250 MG/125 U TAB PO SCH (09:05)
[2017-06-10] MEDS: DOCUSATE SODIUM 100 MG CAP PO SCH ×2 (09:05→22:39)
[2017-06-10] MEDS: LISINOPRIL 5 MG TAB PO SCH (09:05)
[2017-06-10] MEDS: MAGNESIUM HYDROXIDE SUSP 30 ML CUP PO PRN (11:29)
[2017-06-10 12:00] VITALS: BP 122/65; PULSE 93; RESP 16; TEMP 96; O2SAT 100
--- NOTE | 2017-06-10 15:31 | HHI.PR ---
Subjective Remarks stable , no acute event over night no cp , sob Objective Vitals Vital Signs Date Time Temp Pulse Resp B/P (MAP) Pulse Ox O2 Delivery O2 Flow Rate FiO2 06/10/17 08:00 96.2 91 16 175/78 (110) 95 06/10/17 04:00 96.5 80 17 143/79 (100) 96 06/10/17 00:00 97.9 88 17 154/74 (100) 96 06/09/17 19:00 97.1 78 14 97/65 (76) 92 06/09/17 16:00 95.9 88 18 119/63 (81) 97 I/O 06/09/17 06/09/17 06/09/17 06/10/17 06/10/17 06/10/17 07:00 15:00 23:00 07:00 15:00 23:00 Intake Total 1747 ml 600 ml 480 ml 480 ml Output Total 120 ml 300 ml 80 ml 80 ml Balance 1627 ml 300 ml 400 ml 400 ml Intake Oral 480 ml 600 ml 480 ml 480 ml IV Total 1267 ml Output Drainage Total 120 ml 300 ml 80 ml 80 ml # Voids 3 2 2 1 # Bowel Movements 1 0 0 Result Diagram: 06/10/17 0533 Objective Remarks GENERAL: This is a well-nourished, well-developed patient, in no apparent distress. CARDIOVASCULAR: Regular rate and rhythm without murmurs, gallops, or rubs. RESPIRATORY: Clear to auscultation. Breath sounds equal bilaterally. No wheezes , rales, or rhonchi. GASTROINTESTINAL: Abdomen soft, non-tender, nondistended. Normal active bowel sounds MUSCULOSKELETAL: Extremities without clubbing, cyanosis, or edema. NEURO: Alert & Oriented x4 to person, place, time, situation. Moves all ext x4 A/P Problem List: (1) Status post total right knee replacement ICD Code: Z96.651 - Presence of right artificial knee joint (2) HTN (hypertension) ICD Code: I10 - HTN (hypertension) Status: Chronic (3) Hyperlipidemia ICD Code: E78.5 - Hyperlipidemia Status: Chronic (4) Hyperthyroidism ICD Code: E05.90 - Hyperthyroidism Status: Chronic Assessment and Plan Ms. Stein is 86 yo, who underwent total right knee replacement on June 08, [address] Bala Victor who consulted Hospitalist team to medically manage pt's hypertension, hyperthyroidism, and hyperlipidemia. Additionally, pt has history of colon cancer that was resected several years ago. She had an ostomy that was reversed. S/p total right knee arthroplasty -Pain management per Orthopedics -PT/OT per Orthopedics acute anemia postop hemoglobin stable at 10 Hypertension Hyperlipidemia - Lisinopril 2.5 mg po daily -Atorvastatin 40 mg po q hs Hyperthyroidism -Propylthiouracil 50 mg po twice daily DVT prophylaxis -Per Orthopedics Problem Qualifiers (1) HTN (hypertension): Qualified Codes: I10 - Essential (primary) hypertension (2) Hyperlipidemia: Qualified Codes: E78.5 - Hyperlipidemia, unspecified Alfonso Farmer MD Jun 10, 2017 15:31
[2017-06-10 16:00] VITALS: BP 142/79; PULSE 105; RESP 16; TEMP 97.9; O2SAT 96
[2017-06-10 21:19] VITALS: BP 134/64; PULSE 92; RESP 20; TEMP 97; O2SAT 99
[2017-06-10] MEDS: ATORVASTATIN 40 MG TAB PO SCH (22:39)
[2017-06-11 00:46] VITALS: BP 166/93; PULSE 103; RESP 20; TEMP 100.1; O2SAT 96
[2017-06-11 06:13] VITALS: BP 152/95; PULSE 93; RESP 19; TEMP 99.2; O2SAT 95
--- NOTE | 2017-06-11 07:17 | PD.ORT.PN ---
Subjective Post Op Day #: 3 Subjective Remarks She is still doing well with virtually no pain. She continues to do well with PT. Range of Motion 0 to 118 degrees. Distance Walked 200 feet twice. Objective Vitals Vital Signs Date Time Temp Pulse Resp B/P (MAP) Pulse Ox O2 Delivery O2 Flow Rate FiO2 06/11/17 06:13 99.2 93 19 152/95 (114) 95 06/11/17 00:46 100.1 103 20 166/93 (117) 96 06/10/17 21:19 97.0 92 20 134/64 (87) 99 06/10/17 16:00 97.9 105 16 142/79 (100) 96 06/10/17 12:00 96.0 93 16 122/65 (84) 100 06/10/17 08:00 96.2 91 16 175/78 (110) 95 I/O 06/10/17 06/10/17 06/10/17 06/11/17 06/11/17 06/11/17 07:00 15:00 23:00 07:00 15:00 23:00 Intake Total 480 ml 600 ml Output Total 80 ml 60 ml Balance 400 ml 600 ml -60 ml Intake Oral 480 ml 600 ml Output Drainage Total 80 ml 60 ml # Voids 1 4 2 # Bowel Movements 0 0 Result Diagram: 06/10/17 0533 Imaging Last 24 hours Impressions Knee X-Ray 06/08/17 0643 Signed Impressions: Service Date/Time: Thursday, June 08, 2017 09:12 - CONCLUSION: Status post total knee arthroplasty. Jaime Selby MD Objective Remarks She is resting comfortably, supine in bed in the CPM. The dressing is dry and intact. There is no erythema nor induration. The neurovascular status is intact. Assessment & Plan Ortho Post Op Day #: 3 Problem List: (1) Status post total right knee replacement ICD Codes: Z96.651 - Presence of right artificial knee joint Plan: Continue PT and postop care. Assessment and Plan Condition: Good. Orthopaedically stable. DVT prophylaxis: ASA, TEDs, sequentials. Discharge plans: [facility] for rehab. Has appointment. Rx: [place] 7.5/325. Alexandra Victor MD ([place]) Jun 11, 2017 07:17
[2017-06-11 08:00] VITALS: BP 171/86; PULSE 95; RESP 16; TEMP 97.8; O2SAT 96
[2017-06-11] MEDS: SODIUM CHLORIDE 0.9% FLUSH 5 ML FLUSH IVF SCH (09:00)
[2017-06-11] MEDS: PROPYLTHIOURACIL 50 MG TAB PO SCH (09:18)
[2017-06-11] MEDS: DOCUSATE SODIUM 100 MG CAP PO SCH (09:18)
[2017-06-11] MEDS: ASPIRIN EC 81 MG TABEC PO SCH (09:19)
[2017-06-11] MEDS: CALCIUM/VITAMIN D 250 MG/125 U TAB PO SCH (09:19)
[2017-06-11] MEDS: LISINOPRIL 5 MG TAB PO SCH (09:20)
== END 2017-06-11 16:42 | DRG 470 ==
LOC: HSDI 06-08 05:24 → N06A 06-08 15:51
PROVIDERS: ADMIT Orthopaedic Surgery; ATTEND Orthopaedic Surgery
PROC: 3E0T3BZ Introduction of Anesthetic Agent into Peripheral Nerves and Plexi, Percutaneous Approach (ICD-10-PCS; 2017-06-08)
PROC: 0SRC0JA Replacement of Right Knee Joint with Synthetic Substitute, Uncemented, Open Approach (ICD-10-PCS; principal; 2017-06-08 06:33)
DX: M17.11 Unilateral primary osteoarthritis, right knee (principal); D62 Acute posthemorrhagic anemia; I10 Essential (primary) hypertension; Z23 Encounter for immunization; E78.5 Hyperlipidemia, unspecified; Z85.038 Personal history of other malignant neoplasm of large intestine; Z96.643 Presence of artificial hip joint, bilateral; Z87.891 Personal history of nicotine dependence; E05.90 Thyrotoxicosis, unspecified without thyrotoxic crisis or storm
CPT/HCPCS: 73560; 85014; 85018; 85025; 86850; 86900; 86901; 90471; 90472; 90686; 90732; 94150; C1776; C9290; G0008; G0009; J0131; J0690; J1100; J1580; J1885; J2370; J2405; J7120; Q2038

== ENCOUNTER 2018-05-04 11:14 | Observation (INO) ==
[2018-05-04 12:35] LABS: Baso # (Auto) 0.1 th/mm3 (0.0-0.2); Baso % (Auto) 1.1 % (0.0-2.0); Eos % (Auto) 0.6 % (0.0-4.0); Hematocrit 40.7 % (35.0-46.0); Hemoglobin 13.8 gm/dL (11.6-15.3); Lymph # (Auto) 1.3 th/mm3 (1.0-4.8); Lymph % (Auto) 17.3 % (9.0-44.0); Mean Corpuscular HGB Conc 33.8 % (32.0-36.0); Mean Corpuscular Hemoglobin 31.2 pg (27.0-34.0); Mean Corpuscular Volume 92.4 fL (80.0-100.0); Mean Platelet Volume 8.9 fL (7.0-11.0); Mono # (Auto) 0.9 th/mm3 (0.0-0.9); Mono % (Auto) 11.7 % (0.0-8.0); Neut # (Auto) 5.2 th/mm3 (1.8-7.7); Neut % (Auto) 69.3 % (16.0-70.0); Platelet Count 331 th/mm3 (150-450); Red Blood Count 4.41 mil/mm3 (4.00-5.30); Red Cell Distribution Width 12.9 % (11.6-17.2); White Blood Count 7.5 th/mm3 (4.0-11.0)
[2018-05-04 12:55] LABS: Calcium 9.3 mg/dL (8.5-10.1); Carbon Dioxide 24.8 meq/L (21.0-32.0); Potassium 4.5 meq/L (3.5-5.1)
--- NOTE | 2018-05-04 13:50 | ED ---
HPI General Chief complaint: Medical Clearance Stated complaint: PHY sent/vitals Time Seen by Provider: 05/04/18 13:22 History of Present Illness HPI narrative: 87-year-old female presents for evaluation. She reports over the past week she has had dizziness. She reports that symptoms come and go with no obvious aggravating or relieving factors. She reports that she hold onto the wall when her symptoms come on so that she does not follow the ground. She was seen today by her physician Dr. Yeung for evaluation of this issue. Her blood pressure was noted to be low, she has recorded blood pressure readings of 88/48 and 90/50. She was sent here for further evaluation. Denies chest pain, shortness of breath, nausea, vomiting, headache, blurred vision, abdominal pain, diarrhea or constipation. Denies any recent illness. Symptoms are moderate. No other complaints. Related Data Home Medications Medication Instructions Recorded Confirmed atorvastatin 40 mg PO DAILY 05/04/18 05/04/18 lisinopril 2.5 mg PO DAILY 05/04/18 05/04/18 Allergies Allergy/AdvReac Type Severity Reaction Status Date / Time No Known Allergies Allergy Unverified 05/04/18 14:08 Review of Systems ROS: all other systems reviewed are negative [facility] Medical History Medical History Colon cancer (Acute) FHx: total knee replacement (Acute) High cholesterol (Acute) Hypothyroidism (Acute) Kidney disease (Acute) Surgical History Surgical History H/O exploratory laparotomy (Acute) History of hip surgery (Acute) S/P wrist surgery (Acute) Social History Social History Substance History: No History of Abuse Smoking Status: Former smoker How Often Do You Have a Drink Containing Alcohol: Never Recent Travel in [facility] within the Last 8 Weeks: No Recent Out of Country Travel within the Last 8 Weeks: No Exam Narrative Exam Narrative: GENERAL: This is a pleasant well-developed well-nourished female no acute distress SKIN: Warm and dry. HEAD: Atraumatic. Normocephalic. EYES: Pupils equal and round. No scleral icterus. No injection or drainage. ENT: No nasal bleeding or discharge. Mucous membranes pink and moist. NECK: Trachea midline. No JVD. CARDIOVASCULAR: Regular rate and rhythm. No murmur appreciated. RESPIRATORY: No accessory muscle use. Clear to auscultation. Breath sounds equal bilaterally. GASTROINTESTINAL: Abdomen soft, non-tender, nondistended. Hepatic and splenic margins not palpable. MUSCULOSKELETAL: No obvious deformities. No clubbing. No cyanosis. No edema. NEUROLOGICAL: Awake and alert. No obvious cranial nerve deficits. Motor grossly within normal limits. Normal speech. Course Initial Documented Vital Signs Temperature 97.7 F 05/04/18 11:27 Pulse Rate 79 05/04/18 11:27 Respiratory Rate 17 05/04/18 11:27 Blood Pressure 107/65 05/04/18 11:27 Pulse Oximetry 94 L 05/04/18 11:27 Last Documented Vital Signs Temperature 97.7 F 05/04/18 11:27 Pulse Rate 79 05/04/18 14:12 Respiratory Rate 16 05/04/18 14:12 Blood Pressure 164/83 H 05/04/18 14:12 Pulse Oximetry 98 05/04/18 14:12 Medical Decision Making MDM Narrative Medical decision making narrative: The patient was placed on ECG monitoring pulse oximetry. A 12 EKG was obtained. Lab work, urinalysis, CT of the brain will be obtained. Lab work and imaging studies have been reviewed. Positive orthostatic vital signs. Lab work is unremarkable. The patient does not feel comfortable going home, she lives with her elderly sister. The patient will be admitted for observation. Medical Screen Exam Complete: Yes Emergency Medical Condition: Yes Differential Diagnosis Differential Diagnosis: Vertigo, TIA, electrolyte abnormality, orthostatic hypotension, dehydration acute coronary syndrome, arrhythmia Lab Data Result diagrams: 05/04/18 12:10 05/04/18 12:10 Lab Results 05/04/18 05/04/18 05/04/18 Range/Units 12:10 12:10 12:10 WBC 7.5 (4.0-11.0) th/mm3 RBC 4.41 (4.00-5.30) mil/mm3 Hgb 13.8 (11.6-15.3) gm/dL Hct 40.7 (35.0-46.0) % MCV 92.4 (80.0-100.0) fL MCH 31.2 (27.0-34.0) pg MCHC 33.8 (32.0-36.0) % RDW 12.9 (11.6-17.2) % Plt Count 331 (150-450) th/mm3 MPV 8.9 (7.0-11.0) fL Neut % (Auto) 69.3 (16.0-70.0) % Lymph % (Auto) 17.3 (9.0-44.0) % [place] % (Auto) 11.7 H (0.0-8.0) % Eos % (Auto) 0.6 (0.0-4.0) % Baso % (Auto) 1.1 (0.0-2.0) % Neut # (Auto) 5.2 (1.8-7.7) th/mm3 Lymph # (Auto) 1.3 (1.0-4.8) th/mm3 [place] # (Auto) 0.9 (0.0-0.9) th/mm3 Eos # (Auto) 0.0 (0.0-0.4) th/mm3 Baso # (Auto) 0.1 (0.0-0.2) th/mm3 WBC Differential . Differential Comment Auto diff final Sodium 141 (136-145) meq/L Potassium 4.5 (3.5-5.1) meq/L Chloride 107 (98-107) meq/L Carbon Dioxide 24.8 (21.0-32.0) meq/L Anion Gap 9 (5-15) meq/L BUN 17 (7-18) mg/dL Creatinine 1.22 H (0.50-1.00) mg/dL Estimated GFR 42 L (>89) mL/min Random Glucose 112 H (74-106) mg/dL Calcium 9.3 (8.5-10.1) mg/dL Magnesium 2.4 (1.5-2.5) mg/dL Total Creatine Kinase 38 (26-192) U/L Troponin I Less than 0.02 L (0.02-0.05) ng/mL Imaging Data Radiologist's impression: Head CT 05/04/18 13:45 CONCLUSION: 1. Nonspecific white matter changes. 2. No acute intracranial abnormality. . Discharge Plan Discharge Disposition Patient Disposition: 30 Still Patient Discharge Condition Condition: Stable Discharge Details Diagnosis: Near syncope Physicians Team ED Provider: Mohsen Banuelos ED Midlevel Provider: Christofer Alonso Primary Care Provider: Sagar Yeung Attending Provider: Ning Rivers Status ED Status: Admitted Observation Patient
--- NOTE | 2018-05-04 14:12 | CT ---
EXAM DATE: 05/04/2018 2:07 PM EDT AGE/SEX: 87 years / Female INDICATIONS: Dizziness, hypotension. CLINICAL DATA: This is the patient's initial encounter. Patient reports that signs and symptoms have been present for 1 day and indicates a pain score of 0/10. MEDICAL/SURGICAL HISTORY: None. None. RADIATION DOSE: 32.59 CTDI (mGy) COMPARISON: [facility], CT BRAIN W/O CONTRAST, 10/01/2016. . TECHNIQUE: CT of the head without contrast. Using automated exposure control and adjustment of the mA and/or kV according to patient size, radiation dose was kept as low as reasonably achievable to ob tain optimal diagnostic quality images. DICOM format image data is available electronically for revi ew and comparison. FINDINGS: Cerebrum: Scattered areas of low attenuation throughout the white matter. The ventricles are normal for age. No evidence of midline shift, mass lesion, hemorrhage or acute infarction. No extraaxial f luid collections are seen. Posterior Fossa: The cerebellum and brainstem are intact. The 4th ventricle is midline. The cerebe llopontine angle is unremarkable. Extracranial: The visualized portion of the orbits is intact. Skull: The calvaria is intact. No evidence of skull fracture. CONCLUSION: 1. Nonspecific white matter changes. 2. No acute intracranial abnormality. . Electronically signed by: Braden Theodore MD 05/04/2018 2:10 PM EDT
[2018-05-04] MEDS ORDERED: Sod Chloride 0.9% Inj 1,000 ML IV.SIG SCH (14:30)
[2018-05-04 14:49] LABS: Magnesium 2.4 mg/dL (1.5-2.5)
[2018-05-04 15:12] LABS: Creatine Kinase 38 U/L (26-192)
--- NOTE | 2018-05-04 16:05 | P.HPFP ---
History of Present Illness Primary Care Physician: Sagar Yeung MD History of Present Illness: 87 yo female here after suggestion from PCP due to her blood pressure being in the high 80s/high 40s. Patient says she feels unbalanced and dizzy for about 10 days. This occurs all day, every day. She has never lost consciousness. She has not fallen in over 1 year, however she does lose her balance often. She states that the dizziness is worse when getting up from seated position or turning over in bed. She denies chest pain, nausea, sweating, palpitations, abdominal pain. Past medical history: kidney disease hypercholesterolemia hyperthyroidism COPD Past surgical history: knee replacement bilateral hip replacement wrist fracture colon cancer with partial colectomy back surgery shoulder surgery multiple hand surgeries Allergies: NKDA Medications: Patient does not have medication list. She reports that she takes a thyroid medication that starts with "P" lisinopril 2.5 atorvastatin 40 mg PTU? 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 dog no alcohol quit smoking 35 years ago- 20 pack years - Diagnosis (1) Atrial fibrillation (2) Near syncope (3) Hyperthyroidism (4) Nutrition, metabolism, and development symptoms (5) DVT prophylaxis Review of Systems All other systems reviewed negative except as stated in HPI Constitutional: Denies chills, Denies fever(s), Denies headache(s) Eyes: Denies blurry vision, Denies change in vision Ears, Nose, Mouth, and Throat: Reports dizziness, Denies difficulty swallowing, Denies headache(s) Cardiovascular: Denies chest pain, Denies excessive sweating, Denies fainting, Denies fast heart rate Respiratory: Reports shortness of breath, Denies cough Gastrointestinal: Denies abdominal pain, Denies black, tarry stools, Denies bright, red blood in stools Genitourinary: Denies painful urination Musculoskeletal: Denies muscle weakness Skin/Breast: Denies rash Neurologic: Reports dizziness, Denies frequent falls (last fall 1 year ago) Psychiatric: Denies anxiety, Denies depression PMFSH - History History Provided By: Patient - Medical History Medical History: Medical History (Last Updated 05/04/18 @ 18:21 by Aleah Tolentino MD, R1) Colon cancer FHx: total knee replacement High cholesterol Hyperthyroidism Kidney disease - Surgical History Surgical History: Surgical History (Last Updated 05/04/18 @ 14:11 by Nikki Toussaint H/O exploratory laparotomy History of hip surgery S/P wrist surgery - Tobacco History Tobacco Use In Past 30 Days: No Smoking Status: Former smoker - Alcohol History How Often Do You Have a Drink Containing Alcohol: Never - Substance Use History Substance History: No History of Abuse - Travel History Recent Travel in the [place] Within the Last 8 Weeks: No Recent Travel Out of the Country Within the Last 8 Weeks: No - Immunization History Tetanus Immunization: Unsure Hx Influenza Vaccine This Season: No Medications and Allergies Active Medications: Active Medications Sodium Chloride (Ns Inj) 1,000 mls @ 0 mls/hr IV.SIG BOLUS ALESSANDRA Last Admin: 05/04/18 15:33 Dose: 1,000 mls/hr Sodium Chloride (Ns Flush) 2 ml IV.FLUSH PRN PRN PRN Reason: FLUSH AFTER USING IV ACCESS Allergies Allergy/AdvReac Type Severity Reaction Status Date / Time No Known Allergies Allergy Unverified 05/04/18 14:08 Home Medications Medication Instructions Recorded Confirmed Type atorvastatin 40 mg PO DAILY 05/04/18 05/04/18 History lisinopril 2.5 mg PO DAILY 05/04/18 05/04/18 History Exam Vital signs: Vital Signs 05/04/18 11:27 05/04/18 14:12 05/04/18 16:04 Temperature 97.7 F Pulse Rate 79 79 84 Respiratory Rate 17 16 16 Blood Pressure 107/65 164/83 H 148/76 H Pulse Oximetry 94 L 98 96 Intake & Output 05/03/18 05/04/18 05/04/18 18:59 06:59 18:59 Weight 67.132 kg Results - Labs Result diagrams: 05/04/18 12:10 05/04/18 12:10 Abnormal lab results 05/04/18 05/04/18 05/04/18 Range/Units 12:10 12:10 12:10 [place] % (Auto) 11.7 H (0.0-8.0) % Creatinine 1.22 H (0.50-1.00) mg/dL Estimated GFR 42 L (>89) mL/min Random Glucose 112 H (74-106) mg/dL Troponin I Less than 0.02 L (0.02-0.05) ng/mL Short CBC 05/04/18 Range/Units 12:10 WBC 7.5 (4.0-11.0) th/mm3 Hgb 13.8 (11.6-15.3) gm/dL Hct 40.7 (35.0-46.0) % Plt Count 331 (150-450) th/mm3 BMP 05/04/18 12:10 Sodium 141 Potassium 4.5 Chloride 107 Carbon Dioxide 24.8 BUN 17 Creatinine 1.22 H Calcium 9.3 Cardiac Enzymes 05/04/18 Range/Units 12:10 Total Creatine Kinase 38 (26-192) U/L Troponin I Less than 0.02 L (0.02-0.05) ng/mL - Imaging Impressions Head CT 05/04/18 13:45 CONCLUSION: 1. Nonspecific white matter changes. 2. No acute intracranial abnormality. . Caprini VTE Risk Assessment Caprini VTE Risk Assessment: No/Low Risk (score <= 1) Caprini Risk Assessment Model: Point Value = 1 Point Value = 2 Point Value = 3 Point Value = 5 Age 41-60 Minor surgery BMI > 25 kg/m2 Swollen legs Varicose veins or History of unexplained or recurrent spontaneous Oral contraceptives or hormone replacement Sepsis (< 1 month) Serious lung disease, including pneumonia (< 1 month) Abnormal pulmonary function Acute myocardial infarction Congestive heart failure (< 1 month) History of inflammatory bowel disease Medical patient at bed rest Age 61-74 Arthroscopic surgery Major open surgery (> 45 min) Laparoscopic surgery (> 45 min) Malignancy Confined to bed (> 72 hours) Immobilizing plaster cast Central venous access Age >= 75 History of VTE Family history of VTE Factor V Leiden Prothrombin [id number] Lupus anticoagulant Anticardiolipin antibodies Elevated serum homocysteine Heparin-induced thrombocytopenia Other congenital or acquired thrombophilia Stroke (< 1 month) Elective arthroplasty Hip, pelvis, or leg fracture Acute spinal cord injury (< 1 month) Prophylaxis Regimen: Total Risk Factor Score Risk Level Prophylaxis Regimen 0-1 Low Early ambulation 2 Moderate Order ONE of the following: *Sequential Compression Device (SCD) *Heparin 5000 units SQ BID 3-4 Higher Order ONE of the following medications: *Heparin 5000 units SQ TID *Enoxaparin/Lovenox 40 mg SQ daily (WT < 150 kg, CrCl > 30 mL/min) *Enoxaparin/Lovenox 30 mg SQ daily (WT < 150 kg, CrCl > 10-29 mL/min) *Enoxaparin/Lovenox 30 mg SQ BID (WT < 150 kg, CrCl > 30 mL/min) AND/OR *Sequential Compression Device (SCD) 5 or more Highest Order ONE of the following medications: *Heparin 5000 units SQ TID (Preferred with Epidurals) *Enoxaparin/Lovenox 40 mg SQ daily (WT < 150 kg, CrCl > 30 mL/min) *Enoxaparin/Lovenox 30 mg SQ daily (WT < 150 kg, CrCl > 10-29 mL/min) *Enoxaparin/Lovenox 30 mg SQ BID (WT < 150 kg, CrCl > 30 mL/min) AND *Sequential Compression Device (SCD) Assessment and Plan - Assessment (1) Atrial fibrillation Code(s): I48.91 - Unspecified atrial fibrillation Status: Acute Plan: 87-year-old female with newly diagnosed atrial fibrillation. Patient was not aware of any history of irregular heart rhythm. -Telemetry -Trending troponin every 6 hours -Trending EKGs every 6 hours -Follow BMP, and magnesium -Echocardiogram -Chest x-ray -We will consider consulting cardiology -Will think about anticoagulation, but I am hesitant to start an 87-year-old patient on anticoagulants who is unbalanced, dizzy. (Chads vasc score= 3 & Has- bled score=2) -Follow free T4 and TSH -Follow PT INR, PTT (2) Near syncope Code(s): R55 - Syncope and collapse Status: Acute Plan: Patient with 10 days of dizziness and unbalanced feeling who on exam and telemetry was found to be in atrial fibrillation. This is likely due to atrial fibrillation but could also be due to dehydration, orthostatic hypotension, medications. -Orthostatic blood pressures -RPR -Vitamin B12 level -Up with assistance (3) Hyperthyroidism Code(s): E05.90 - Thyrotoxicosis, unspecified without thyrotoxic crisis or storm Status: Acute Plan: Patient states she has "high thyroid" and takes a medicine that starts with a "P " but she does not know the name of the medication. -Free T4 and TSH ordered -Nurse was contacting pharmacy or family member to obtain medication list. (4) Nutrition, metabolism, and development symptoms Code(s): R63.8 - Other symptoms and signs concerning food and fluid intake Status: Acute Plan: -Regular diet -Fluids at 90 mils per hour (5) DVT prophylaxis Status: Acute Plan: -30 mg Lovenox due to creatinine of 1.22 -Bilateral SCDs
[2018-05-04 16:32] LABS: Bilirubin,Urine Negative (Negative); Clarity,Urine Clear (Clear); Color,Urine Yellow (Yellw/Straw); Glucose,Urine (UA) Negative (Negative); Hyaline Casts,Urine 21 /lpf (0-3); Leukocyte Esterase,Urine Small (Negative); Mucus,Urine Few /lpf (Occasional); Nitrite,Urine Negative (Negative); Specific Gravity,Urine 1.013 (1.002-1.035); Squamous Epithelial Cell,Urine <1 /hpf (0-5)
[2018-05-04] MEDS ORDERED: Bisacodyl 10 MG Supp RECTAL PRN (16:55)
[2018-05-04] MEDS ORDERED: Acetaminophen 325 MG Tablet PO PRN (16:55)
--- NOTE | 2018-05-04 17:53 | US ---
EXAM DATE: 05/04/2018 5:45 PM EDT AGE/SEX: 87 years / Female INDICATIONS: Syncope. CLINICAL DATA: This is the patient's initial encounter. Patient reports that signs and symptoms have been present for 1 day and indicates a pain score of 0/10. MEDICAL/SURGICAL HISTORY: Carcinoma, colon. Hypercholesterolemia. Hypothyroidism. Kidney dis ease. . Knee replacement. Exploratory laparotomy. Hip surgery. Wrist surgery. COMPARISON: No prior exams available for comparison. VELOCITY PARAMETERS: ICA/CCA Ratio: Right 1.5 , Left 0.9 ICA: Right 158 cm/sec, Left 87 cm/sec CCA: Right 106 cm/sec, Left 92 cm/sec ECA: Right 120 cm/sec, Left 87 cm/sec Vertebral: Right 74 cm/sec antegrade, Left 40 cm/sec antegrade FINDINGS: Right Carotid: Mild arteriosclerotic plaque is visualized. There are elevated velocities identified within the proximal and distal right internal carotid artery with broadening of the waveforms consist ent with a 50-69% stenosis. Left Carotid: Mild arteriosclerotic plaque is visualized. The waveforms are within normal limits. Other: None. CONCLUSION: 1. Right Internal Carotid Artery: Elevated velocities with broadening of the waveforms involving the proximal and distal right internal carotid artery with velocities consistent with a 50-69% stenosis. Consider further evaluation with CTA to confirm. 2. Left Internal Carotid Artery: No significant stenosis is seen. Electronically signed by: Irena Mayers MD 05/04/2018 5:52 PM EDT
[2018-05-04] MEDS ORDERED: Enoxaparin Inj 30 MG/0.3 ML Syringe SQ SCH (18:00)
[2018-05-04] MEDS: Sod Chloride 0.9% Inj 1,000 ML IV.CONT SCH (19:19)
[2018-05-04 19:25] LABS: Free T4 (Free Thyroxine) 0.84 ng/dL (0.76-1.46); Thyroid Stimulating Hormone 0.015 uIU/mL (0.358-3.740); Vitamin B12 571 pg/mL (193-986)
--- NOTE | 2018-05-04 20:24 | XR ---
EXAM DATE: 05/04/2018 8:20 PM EDT AGE/SEX: 87 years / Female INDICATIONS: . Cardiac disease. CLINICAL DATA: This is the patient's initial encounter. Patient reports that signs and symptoms have been present for 1 day and indicates a pain score of 0/10. MEDICAL/SURGICAL HISTORY: None. None. COMPARISON: . FINDINGS: The heart is mildly prominent. There is elevation of the left hemidiaphragm. Bibasilar chronic inters titial infiltrates are unchanged. No acute focal pulmonary infiltrate is noted. Tiny stable granuloma within the right midlung field. CONCLUSION: 1. Stable chronic bibasilar interstitial infiltrates. 2. No acute infiltrate or pulmonary vascular congestion. 3. Cardiomegaly. Electronically signed by: Med Leigh MD 05/04/2018 8:23 PM EDT
--- NOTE | 2018-05-04 20:33 | CT ---
EXAM DATE: 05/04/2018 8:25 PM EDT AGE/SEX: 87 years / Female INDICATIONS: Low blood pressure. CLINICAL DATA: This is the patient's initial encounter. Patient reports that signs and symptoms have been present for 1 day and indicates a pain score of 0/10. MEDICAL/SURGICAL HISTORY: Renal disease. Carcinoma, colon. None. RADIATION DOSE: 25.54 CTDI (mGy) COMPARISON: . TECHNIQUE: Volumetric scanning was performed using a multirow detector CT scanner during bolus infus ion of 70 ml Omnipaque 350 (iohexol) nonionic water-soluble contrast as a single exam dose. The da ta was postprocessed with a variety of visualization algorithms including full-volume maximum intensi ty projection, multiplanar sliding thin-slab reformation, curved-planar reformation, and surface-rend ering techniques. Using automated exposure control and adjustment of the mA and/or kV according to p atient size, radiation dose was kept as low as reasonably achievable to obtain optimal diagnostic cesar lity images. DICOM format image data is available electronically for review and comparison. FINDINGS: Aortic Arch: There is a three-vessel origin of the great vessels from the aorta. No evidence of ost ial narrowing Right Carotid: The common carotid artery is intact. The carotid bulb has a normal configuration wit hout ulceration or narrowing. Approximately 50% stenosis of the right proximal internal carotid arter y is noted. The external carotid artery is intact. Left Carotid: The common carotid artery is intact. The carotid bulb has a normal configuration with out ulceration or narrowing. Approximately 50% stenosis of the left proximal internal carotid artery is noted. The external carotid artery is intact. Vertebrals: The left vertebral artery is dominant. No stenotic lesions are seen. Percent stenosis is calculated using the diameter of the stenotic region over the diameter of the nor mal distal internal carotid artery. CONCLUSION: 1. Approximately 50% stenosis of the proximal internal carotid arteries bilaterally. 2. Dominant left vertebral artery. Electronically signed by: Med Leigh MD 05/04/2018 8:32 PM EDT
[2018-05-04 22:45] LABS: Magnesium 2.1 mg/dL (1.5-2.5)
[2018-05-04 22:47] LABS: Troponin I 0.02 ng/mL (0.02-0.05)
[2018-05-04 22:53] LABS: Activated Partial Thrombo Time 32.4 sec (24.3-30.1); INR 1.1 Ratio; Prothrombin Time 10.8 sec (9.8-11.6)
[2018-05-05 01:22] LABS: Bilirubin,Urine Negative (Negative); Clarity,Urine Clear (Clear); Color,Urine Straw (Yellw/Straw); Glucose,Urine (UA) Negative (Negative); Leukocyte Esterase,Urine Small (Negative); Mucus,Urine Few /lpf (Occasional); Nitrite,Urine Negative (Negative); Specific Gravity,Urine 1.029 (1.002-1.035); Squamous Epithelial Cell,Urine <1 /hpf (0-5)
[2018-05-05] MEDS: Sod Chloride 0.9% Inj 1,000 ML IV.CONT SCH ×2 (03:43→16:23)
[2018-05-05] MEDS: Lisinopril 5 MG Tablet PO SCH (08:47)
--- NOTE | 2018-05-05 09:43 | ECG ---
Date Performed: 05/05/2018 Time Performed: 00:44:11 PTAGE: 87 years EKG: Sinus rhythm WITH MARKED SINUS ARRHYTHMIA LOW QRS VOLTAGE IN EXTREMITY LEADS MODERATE ST DEPRESSION ABNORMAL ECG PREVIOUS TRACING : 05/04/2018 21.50 DOCTOR: Sergey Etienne Interpretating Date/Time 05/05/2018 09:42:23
--- NOTE | 2018-05-05 09:59 | ECG ---
Date Performed: 05/04/2018 Time Performed: 21:50:51 PTAGE: 87 years EKG: Sinus rhythm MODERATE ST DEPRESSION ABNORMAL ECG PREVIOUS TRACING : 05/04/2018 13.54 DOCTOR: Sergey Etienne Interpretating Date/Time 05/05/2018 09:58:38
--- NOTE | 2018-05-05 11:01 | P.PNFP ---
Subjective Interval history: This note is written in conjunction with resident H&P dated 05/04/2018. Minerva Booker is an 87yo lady sent by her PCP, Dr Sagar Yeung, for hypotension in the office noted to be 80s/40s. In addition, patient has felt dizziness describes as an imbalance for 10 days. No associated falls. Dizziness is worse with turning over in bed and changing position (from supine to sit or sit to stand). Overnight, blood pressures were noted to be elevated and PRN vasotec was added. This morning, pt reports dizziness upon standing to go to the restroom today. She denies nausea. ROS: No chest pain, palpitations, nausea, vomiting. + dizziness. Otherwise as per resident H&P. PMH/PSxH/SocHx/FamHx: Per resident H&P. Significant for: dyslipidemia, hyperthyroidism, COPD, kidney disease, vertigo, colon CA s/p partial colectomy. Multiple orthopedic surgeries. 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 Lives with her sister. Prior tobacco abuse - quit 35 years ago. No alcohol use. Results - Labs Result diagrams: 05/04/18 12:10 05/04/18 12:10 Abnormal lab results 05/04/18 05/04/18 05/04/18 Range/Units 12:10 12:10 12:10 Bee % (Auto) 11.7 H (0.0-8.0) % APTT (24.3-30.1) sec Creatinine 1.22 H (0.50-1.00) mg/dL Estimated GFR 42 L (>89) mL/min Random Glucose 112 H (74-106) mg/dL Troponin I Less than 0.02 L (0.02-0.05) ng/mL B-Natriuretic Peptide (0-100) pg/mL TSH (0.358-3.740) uIU/mL Ur Leukocyte Esterase (Negative) Urine WBC (0-5) /hpf Urine Mucus (Occasional) /lpf 05/04/18 05/04/18 05/04/18 Range/Units 15:16 18:00 21:46 Bee % (Auto) (0.0-8.0) % APTT (24.3-30.1) sec Creatinine (0.50-1.00) mg/dL Estimated GFR (>89) mL/min Random Glucose (74-106) mg/dL Troponin I Less than 0.02 L (0.02-0.05) ng/mL B-Natriuretic Peptide 143 H (0-100) pg/mL TSH 0.015 L (0.358-3.740) uIU/mL Ur Leukocyte Esterase Small H (Negative) Urine WBC (0-5) /hpf Urine Mucus Few H (Occasional) /lpf 05/04/18 05/05/18 Range/Units 21:46 00:30 Bee % (Auto) (0.0-8.0) % APTT 32.4 H (24.3-30.1) sec Creatinine (0.50-1.00) mg/dL Estimated GFR (>89) mL/min Random Glucose (74-106) mg/dL Troponin I (0.02-0.05) ng/mL B-Natriuretic Peptide (0-100) pg/mL TSH (0.358-3.740) uIU/mL Ur Leukocyte Esterase Small H (Negative) Urine WBC 20 H (0-5) /hpf Urine Mucus Few H (Occasional) /lpf Short CBC 05/04/18 Range/Units 12:10 WBC 7.5 (4.0-11.0) th/mm3 Hgb 13.8 (11.6-15.3) gm/dL Hct 40.7 (35.0-46.0) % Plt Count 331 (150-450) th/mm3 BMP 05/04/18 12:10 Sodium 141 Potassium 4.5 Chloride 107 Carbon Dioxide 24.8 BUN 17 Creatinine 1.22 H Calcium 9.3 Cardiac Enzymes 05/04/18 05/04/18 05/04/18 Range/Units 12:10 18:00 21:46 Total Creatine Kinase 38 (26-192) U/L Troponin I Less than 0.02 L Less than 0.02 L 0.02 (0.02-0.05) ng/mL Urine 05/04/18 05/05/18 Range/Units 15:16 00:30 Urine Color Yellow Straw (Yellw/Straw) Urine Clarity Clear Clear (Clear) Urine pH 5.0 5.0 (5.0-8.5) Ur Specific [place] 1.013 1.029 (1.002-1.035) Urine Protein Negative Negative (Neg-Trace) mg/dL Urine Glucose (UA) Negative Negative (Negative) mg/dL - Imaging Impressions Carotid Doppler Study 05/04/18 00:00 CONCLUSION: 1. Right Internal Carotid Artery: Elevated velocities with broadening of the waveforms involving the proximal and distal right internal carotid artery with velocities consistent with a 50-69% stenosis. Consider further evaluation with CTA to confirm. 2. Left Internal Carotid Artery: No significant stenosis is seen. Chest X-Ray 05/04/18 00:00 CONCLUSION: 1. Stable chronic bibasilar interstitial infiltrates. 2. No acute infiltrate or pulmonary vascular congestion. 3. Cardiomegaly. Neck CTA 05/04/18 00:00 CONCLUSION: 1. Approximately 50% stenosis of the proximal internal carotid arteries bilaterally. 2. Dominant left vertebral artery. Head CT 05/04/18 13:45 CONCLUSION: 1. Nonspecific white matter changes. 2. No acute intracranial abnormality. . Physical Exam Vital signs: Vital Signs 05/04/18 11:27 05/04/18 14:12 05/04/18 16:55 Temperature 97.7 F Pulse Rate 79 79 65 Respiratory Rate 17 16 16 Blood Pressure 107/65 164/83 H 211/90 H Pulse Oximetry 94 L 98 95 05/04/18 17:57 05/04/18 18:50 05/04/18 19:40 Temperature 98.2 F Pulse Rate 87 Respiratory Rate 16 Blood Pressure 138/68 179/80 H 145/77 H Pulse Oximetry 94 L 05/04/18 19:42 05/04/18 20:00 05/04/18 23:43 Temperature 97.9 F Pulse Rate 89 81 67 Respiratory Rate 16 Blood Pressure 150/70 H 180/83 H Pulse Oximetry 95 95 05/05/18 00:00 05/05/18 03:34 05/05/18 04:00 Temperature 98.1 F Pulse Rate 73 77 77 Respiratory Rate 16 Blood Pressure 199/88 H Pulse Oximetry 92 L 05/05/18 08:00 05/05/18 09:00 Temperature 97.9 F Pulse Rate 82 Respiratory Rate 14 Blood Pressure 201/94 H 185/80 H Pulse Oximetry 92 L Intake & Output 05/04/18 05/05/18 05/05/18 18:59 06:59 18:59 Intake Total 3000 / 3000 Balance 3000 / 3000 Weight 67.132 kg Intake: IV 3000 / 3000 NS Inj 1,000 ML @ 90 mls/hr IV. 1999 CONT .[id number] ALESSANDRA Rx#:[id number] NS Inj 1,000 ML @ Wide Open IV. 999 / 999 SIG BOLUS ALESSANDRA Rx#:[id number] Other: Date of Last Bowel Movement 05/03/18 Narrative: As per resident H&P. Significant for: In NAD, no resp distress. Nontoxic. Lying comfortably in bed. Dizziness with change from supine to sit. No meningeal signs. No carotid bruits. Irregular rhythm. No significant murmur. CTAB, no crackles, no wheezes. +BS, soft, nontender, nondistended. No CVAT. Neurologic exam grossly WNL. CN II-XII, sensation to light touch, muscle strength, DTRs, and cerebellum grossly intact. No pronator drift. Mood and affect are appropriate. Speech fluent. Does not appear to respond to internal stimuli. + Sera Hallpike on the left. Assessment and Plan - Assessment (1) Vertigo Code(s): R42 - Dizziness and giddiness Status: Acute Plan: Patient with known h/o vertigo after discussion with PCP. + Sera Hallpike on the left. Will add meclizine. Pt would likely benefit from vestibular therapy. Consider also dysrhythmia, orthostasis, thyroid disease. (2) Sinus arrhythmia Code(s): I49.9 - Cardiac arrhythmia, unspecified Status: Acute Plan: This is a new diagnosis, according to PCP. Echo ordered. Cardiology consulted. EKG demonstrated sinus arrhythmia and troponins are reassuring. (3) Hypertension Code(s): I10 - Essential (primary) hypertension Status: Acute Plan: Unknown if this is acute vs chronic. Awaiting records from patient PCP to confirm. Continue home lisinopril. Add amlodipine. PRN vasotec. (4) Near syncope Code(s): R55 - Syncope and collapse Status: Acute Plan: Patient with known h/o vertigo and now with hypotension in the PCP office. Consider arrhythmia vs thyroid disease vs dehydration vs orthostasis vs medication effect. Check orthostatic BP. Orthostatic vitals checked yesterday did not include HR, but did have a >20 point drop with changing from sit to stand. Will repeat orthostatic vitals to check BP and pulse in all positions (supine, sit, and stand). Cardiology consulted as above. (5) Hyperthyroidism Code(s): E05.90 - Thyrotoxicosis, unspecified without thyrotoxic crisis or storm Status: Chronic Plan: Pt with TSH of 3.88 in November 2017. TSH low and Free T4 WNL. Pt may benefit from outpatient endocrinology follow up. Uncertain if patient is taking her medications correctly, as she is unable to provide the names of her medications. This may be contributing to patient's symptoms. - Assessment and Plan Discharge Planning: Consider discharge today or tomorrow, pending the following: Cardiology evaluation * Echocardiogram * Repeat CXR * PT evaluation * orthostatic vitals - Attending Attestation Patient seen, examined, and discussed with resident team. (3) Hypertension Qualifiers: Hypertension type: unspecified Qualified Code(s): I10 - Essential (primary) hypertension
[2018-05-05] MEDS: amLODIPine 5 MG Tablet PO SCH (11:09)
[2018-05-05] MEDS: Polyethylene Glycol 3350 17 GM Packet PO SCH (11:09)
[2018-05-05 11:57] LABS: Baso # (Auto) 0.1 th/mm3 (0.0-0.2); Baso % (Auto) 0.9 % (0.0-2.0); Eos # (Auto) 0.1 th/mm3 (0.0-0.4); Eos % (Auto) 0.9 % (0.0-4.0); Hematocrit 39.7 % (35.0-46.0); Hemoglobin 13.3 gm/dL (11.6-15.3); Lymph # (Auto) 1.3 th/mm3 (1.0-4.8); Lymph % (Auto) 16.4 % (9.0-44.0); Mean Corpuscular HGB Conc 33.5 % (32.0-36.0); Mean Corpuscular Hemoglobin 30.8 pg (27.0-34.0); Mean Corpuscular Volume 91.9 fL (80.0-100.0); Mean Platelet Volume 9.1 fL (7.0-11.0); Mono # (Auto) 0.5 th/mm3 (0.0-0.9); Mono % (Auto) 6.8 % (0.0-8.0); Neut # (Auto) 5.9 th/mm3 (1.8-7.7); Platelet Count 299 th/mm3 (150-450); Red Blood Count 4.32 mil/mm3 (4.00-5.30); Red Cell Distribution Width 13.1 % (11.6-17.2); White Blood Count 7.9 th/mm3 (4.0-11.0)
[2018-05-05 12:30] LABS: Albumin 3.2 g/dL (3.4-5.0); Anion Gap 11 meq/L (5-15); Aspartate Aminotransferase 13 U/L (15-37); Blood Urea Nitrogen 13 mg/dL (7-18); Calcium 8.9 mg/dL (8.5-10.1); Carbon Dioxide 22.8 meq/L (21.0-32.0); Chloride 107 meq/L (98-107); Glomerular Filtration Rate 54 mL/min (>89); Glucose,Random 142 mg/dL (74-106); Potassium 3.8 meq/L (3.5-5.1); Sodium 141 meq/L (136-145)
[2018-05-05 12:32] LABS: Alanine Aminotransferase 16 U/L (10-53)
[2018-05-05 12:34] LABS: Alkaline Phosphatase 107 U/L (45-117); Total Protein 6.4 g/dL (6.4-8.2)
--- NOTE | 2018-05-05 12:36 | XR ---
EXAM DATE: 05/05/2018 12:30 PM EDT AGE/SEX: 87 years / Female INDICATIONS: . Infiltrate. Syncope. CLINICAL DATA: This is the patient's subsequent encounter. Patient reports that signs and symptoms h ave been present for 2 days and indicates a pain score of 0/10. MEDICAL/SURGICAL HISTORY: . Carcinoma, colon. Hypercholesterolemia. Hypothyroidism. Kidney dis ease. . Knee replacement. Exploratory laparotomy. Hip surgery. Wrist surgery. COMPARISON: [facility] [place], CHEST 2V PA&LAT, 05/04/2018. . FINDINGS: Cardiomegaly. Mild interstitial prominence at the bases. Calcified granuloma right midlung. Degenerat kirill changes of the spine. Aortic calcification. CONCLUSION: Stable appearance of the chest. Electronically signed by: Jm Zavala MD 05/05/2018 12:35 PM EDT
--- NOTE | 2018-05-05 13:21 | ECG ---
Date Performed: 05/04/2018 Time Performed: 13:54:43 PTAGE: 87 years EKG: Sinus rhythm WITH MARKED SINUS ARRHYTHMIA BORDERLINE ECG PREVIOUS TRACING : 05/01/2017 08.57 DOCTOR: Sergey Etienne Interpretating Date/Time 05/05/2018 13:20:24
[2018-05-05] MEDS: Heparin - SQ 10,000 UNITS/ML Vial SQ SCH ×2 (14:04→21:19)
--- NOTE | 2018-05-05 14:44 | ECHRPT ---
Indication: Atrial Fib and Flutter CONCLUSIONS Normal left ventricular size. Mild concentric left ventricular hypertrophy. The left ventricular systolic function is normal with an estimated ejection fraction in the range of 55-60%. No regional wall motion abnormalities are present. Trace mitral valve regurgitation. Aortic valve sclerosis is present. There is trace tricuspid valve regurgitation. The estimated pulmonary arterial pressure is 30 mmHg. The pulmonary valve is not well visualized. A prominent epicardial fat pad is present. The left atrial size is mildly dilated. BP: / HR: Rhythm: Technical Quality:Fair FINDINGS LEFT VENTRICLE Normal left ventricular size. Mild concentric left ventricular hypertrophy. The left ventricular systolic function is normal with an estimated ejection fraction in the range of 55-60%. No regional wall motion abnormalities are present. RIGHT VENTRICLE Normal right ventricular size and systolic function. LEFT ATRIUM The left atrial size is mildly dilated. RIGHT ATRIUM The right atrial size is normal. ATRIAL SEPTUM Normal atrial septal thickness without atrial level shunting by limited color doppler interrogation. AORTA The aortic root and proximal ascending aorta are normal in size on limited imaging. MITRAL VALVE Trace mitral valve regurgitation. AORTIC VALVE Aortic valve sclerosis is present. TRICUSPID VALVE There is trace tricuspid valve regurgitation. The estimated pulmonary arterial pressure is 30 mmHg. PULMONARY VALVE The pulmonary valve is not well visualized. VESSELS The inferior vena cava is normal in size. PERICARDIUM A prominent epicardial fat pad is present. Shahriar Howard MD, FACC, [facility] [place] (Electronically Signed) Final Date:05 May 2018 14:43
--- NOTE | 2018-05-05 16:37 | MB ---
cc: Shahriar Howard MD DATE: 05/05/2018 HISTORY OF PRESENT ILLNESS: Minerva is a very pleasant 87-year-old lady, who was sent to the emergency room by the PA at Dr. Yeung's office due to hypotension. The patient currently states that she feels well. Denies chest pain, fever, chills, cough, GI or bleeding, PND, orthopnea, or dizziness. PAST MEDICAL HISTORY: As per history of present illness and includes colon cancer, total knee replacement, hyperlipidemia, hypothyroidism, kidney disease, exploratory laparotomy, history of hip surgery, status post wrist surgery. SOCIAL HISTORY: She is a former smoker. Denies alcohol use. MEDICATIONS: 1. Lipitor 40 mg daily. 2. Amlodipine 5 mg daily. 3. Heparin 5000 subcutaneous every 8 hours. 4. Prinivil 2.5 daily. 5. Antivert. PHYSICAL EXAMINATION: VITAL SIGNS: Blood pressure 185/80, pulse 115, pulse 83, temperature 97.9. Initial blood pressure is 107 systolic, but she has had systolic blood pressures as high as 211. GENERAL: She is alert and oriented x3, in no acute distress. NECK: Supple. No JVD. No bruit. CARDIOVASCULAR: S1, S2. No murmurs, rubs, or gallops. LUNGS: Clear to auscultation bilaterally. ABDOMEN: Soft, nontender, nondistended, with positive bowel sounds. EXTREMITIES: No extremity edema. LABORATORY DATA: White count 7.9, hemoglobin 13.3, hematocrit 39.7, platelet count 299,000. INR 1.1. Sodium 141, potassium 3.8, chloride 107, bicarbonate 22.8, BUN 13, creatinine 0.97, glucose 142. BNP is 143. DIAGNOSTIC DATA: She had a carotid Doppler, which showed a 50% to 69% right internal carotid artery stenosis. Chest x-ray: Stable chronic bibasilar interstitial infiltrates, no acute infiltrate or pulmonary vascular congestion, cardiomegaly. CTA: 50% stenosis of the proximal internal carotid arteries bilaterally. Dominant left vertebral artery. Head CT: Nonspecific white matter changes, no acute intracranial abnormality. EKG: Normal sinus rhythm at 63 beats per minute. Repeat EKG: Normal sinus rhythm at 71 beats per minute, 30 kg, normal sinus rhythm at 68 beats per minute. Echocardiogram: EF 55-60%, trace MR, PA pressure 30 mmHg. DIAGNOSES: 1. Near syncope. 2. Severe hypertension. 3. Hypotension. 4. Labile blood pressure. 5. Carotid stenosis. 6. Hyperglycemia. 7. Decompensated congestive heart failure. DISCUSSION: At this point in time, will need to continue to continue to trend her blood pressure, as she has had such extremeness in her systolic blood pressure ranging between 88 and 211 since admission. Further recommendations based on this trend. MD PILAR Madden/cordell , 03:56 PM , 04:06 PM
[2018-05-06] MEDS: Sod Chloride 0.9% Inj 1,000 ML IV.CONT SCH (04:15)
[2018-05-06] MEDS: Heparin - SQ 10,000 UNITS/ML Vial SQ SCH (07:12)
[2018-05-06 08:09] LABS: Baso # (Auto) 0.1 th/mm3 (0.0-0.2); Baso % (Auto) 0.9 % (0.0-2.0); Eos # (Auto) 0.2 th/mm3 (0.0-0.4); Eos % (Auto) 3.1 % (0.0-4.0); Hematocrit 37.2 % (35.0-46.0); Hemoglobin 12.9 gm/dL (11.6-15.3); Lymph # (Auto) 1.9 th/mm3 (1.0-4.8); Lymph % (Auto) 33.1 % (9.0-44.0); Mean Corpuscular HGB Conc 34.7 % (32.0-36.0); Mean Corpuscular Hemoglobin 31.3 pg (27.0-34.0); Mean Corpuscular Volume 90.1 fL (80.0-100.0); Mean Platelet Volume 9.4 fL (7.0-11.0); Mono # (Auto) 0.7 th/mm3 (0.0-0.9); Neut # (Auto) 2.8 th/mm3 (1.8-7.7); Neut % (Auto) 49.9 % (16.0-70.0); Platelet Count 284 th/mm3 (150-450); Red Blood Count 4.12 mil/mm3 (4.00-5.30); Red Cell Distribution Width 13.1 % (11.6-17.2); White Blood Count 5.7 th/mm3 (4.0-11.0)
[2018-05-06 08:28] LABS: Alanine Aminotransferase 14 U/L (10-53); Anion Gap 12 meq/L (5-15); Aspartate Aminotransferase 11 U/L (15-37); Blood Urea Nitrogen 12 mg/dL (7-18); Calcium 8.7 mg/dL (8.5-10.1); Carbon Dioxide 23.2 meq/L (21.0-32.0); Chloride 109 meq/L (98-107); Glomerular Filtration Rate 58 mL/min (>89); Glucose,Random 84 mg/dL (74-106); Potassium 3.7 meq/L (3.5-5.1); Sodium 144 meq/L (136-145)
--- NOTE | 2018-05-06 08:29 | P.PNFP ---
Subjective Interval history: Patient seen and examined bedside today. Patient states she still has mild dizziness when she walks around or goes to the bathroom. She still has mild dizziness when she sits up in bed. She does feel like she would be safe to go home at this point. Denies any nausea or vomiting. No acute events overnight. No falls. No chest pain/shortness of breath/dizziness. <Patience House - 05/06/18 11:36> Results - Labs Result diagrams: 05/06/18 06:15 05/06/18 06:15 <Ning Rivers - 05/06/18 16:57> Abnormal lab results 05/06/18 05/06/18 Range/Units 06:15 06:15 [place] % (Auto) 13.0 H (0.0-8.0) % Chloride 109 H (98-107) meq/L Estimated GFR 58 L (>89) mL/min AST 11 L (15-37) U/L Total Protein 6.1 L (6.4-8.2) g/dL Albumin 3.0 L (3.4-5.0) g/dL Short CBC 05/06/18 Range/Units 06:15 WBC 5.7 (4.0-11.0) th/mm3 Hgb 12.9 (11.6-15.3) gm/dL Hct 37.2 (35.0-46.0) % Plt Count 284 (150-450) th/mm3 BMP 05/06/18 06:15 Sodium 144 Potassium 3.7 Chloride 109 H Carbon Dioxide 23.2 BUN 12 Creatinine 0.91 Calcium 8.7 Liver Function 05/06/18 Range/Units 06:15 Total Bilirubin 0.6 (0.2-1.0) mg/dL AST 11 L (15-37) U/L ALT 14 (10-53) U/L Alkaline Phosphatase 89 (45-117) U/L Albumin 3.0 L (3.4-5.0) g/dL <Ning Rivers - 05/06/18 16:57> Abnormal lab results 05/05/18 05/05/18 05/06/18 Range/Units 10:33 10:33 06:15 Neut % (Auto) 75.0 H (16.0-70.0) % [place] % (Auto) 13.0 H (0.0-8.0) % Chloride (98-107) meq/L Estimated GFR 54 L (>89) mL/min Random Glucose 142 H (74-106) mg/dL AST 13 L (15-37) U/L Albumin 3.2 L (3.4-5.0) g/dL 05/06/18 Range/Units 06:15 Neut % (Auto) (16.0-70.0) % [place] % (Auto) (0.0-8.0) % Chloride 109 H (98-107) meq/L Estimated GFR 58 L (>89) mL/min Random Glucose (74-106) mg/dL AST 11 L (15-37) U/L Albumin 3.0 L (3.4-5.0) g/dL Short CBC 05/05/18 05/06/18 Range/Units 10:33 06:15 WBC 7.9 5.7 (4.0-11.0) th/mm3 Hgb 13.3 12.9 (11.6-15.3) gm/dL Hct 39.7 37.2 (35.0-46.0) % Plt Count 299 284 (150-450) th/mm3 BMP 05/05/18 05/06/18 10:33 06:15 Sodium 141 144 Potassium 3.8 3.7 Chloride 107 109 H Carbon Dioxide 22.8 23.2 BUN 13 12 Creatinine 0.97 0.91 Calcium 8.9 8.7 Liver Function 05/05/18 05/06/18 Range/Units 10:33 06:15 Total Bilirubin 0.8 (0.2-1.0) mg/dL AST 13 L 11 L (15-37) U/L ALT 16 14 (10-53) U/L Alkaline Phosphatase 107 (45-117) U/L Albumin 3.2 L 3.0 L (3.4-5.0) g/dL <Patience House - 05/06/18 08:29> - Imaging Impressions Chest X-Ray 05/05/18 09:25 CONCLUSION: Stable appearance of the chest. <Patience House - 05/06/18 08:29> Physical Exam Vital signs: Vital Signs 05/05/18 20:00 05/06/18 00:00 05/06/18 04:00 Temperature 98.7 F 98.4 F 98.2 F Pulse Rate 83 75 71 Respiratory Rate 20 19 19 Blood Pressure 131/63 141/67 H 149/70 H Pulse Oximetry 93 L 94 L 98 05/06/18 07:33 Temperature 97.9 F Pulse Rate 74 Respiratory Rate 12 Blood Pressure 163/67 H Pulse Oximetry 90 L Intake & Output 05/05/18 05/06/18 05/06/18 18:59 06:59 18:59 Other: # Voids 4 Date of Last Bowel Movement 05/05/18 # Bowel Movements 3 <Ning Rivers - 05/06/18 16:57> Vital Signs 05/05/18 09:00 05/05/18 16:00 05/05/18 20:00 Temperature 97.7 F 98.7 F Pulse Rate 83 83 83 Respiratory Rate 12 20 Blood Pressure 185/80 H 163/80 H 131/63 Pulse Oximetry 95 93 L 05/06/18 00:00 05/06/18 04:00 05/06/18 07:33 Temperature 98.4 F 98.2 F 97.9 F Pulse Rate 75 71 74 Respiratory Rate 19 19 12 Blood Pressure 141/67 H 149/70 H 163/67 H Pulse Oximetry 94 L 98 90 L Intake & Output 05/05/18 05/06/18 05/06/18 18:59 06:59 18:59 Other: # Voids 4 Date of Last Bowel Movement 05/05/18 # Bowel Movements 3 <Patience House - 05/06/18 08:29> Narrative: In NAD, no resp distress. Nontoxic. Lying comfortably in bed. Dizziness with change from supine to sit. No carotid bruits. Irregular rhythm. No significant murmur. CTAB, no crackles, no wheezes. +BS, soft, nontender, nondistended. No CVAT. Neurologic exam grossly WNL. <Patience House - 05/06/18 11:36> Assessment and Plan - Assessment (1) Vertigo Code(s): R42 - Dizziness and giddiness Status: Acute (2) Sinus arrhythmia Code(s): I49.9 - Cardiac arrhythmia, unspecified Status: Acute (3) Hypertension Code(s): I10 - Essential (primary) hypertension Status: Acute (4) Near syncope Code(s): R55 - Syncope and collapse Status: Acute (5) Hyperthyroidism Code(s): E05.90 - Thyrotoxicosis, unspecified without thyrotoxic crisis or storm Status: Chronic <Ning Rivers - 05/06/18 16:57> (1) Vertigo Code(s): R42 - Dizziness and giddiness Status: Acute Plan: Differential includes orthostatic hypotension versus BPPV Severe orthostatic hypotension; lying down 189/84 --> standing 126/67 -Patient is advised to increase fluid intake, salt intake -Advised to go to physical therapy to work on leg strengthening -Advised to get up slowly and change positions slowly, do not stand for long periods of time, to leg exercises in bed before standing -Advised to follow-up with PCP for consideration of medication such as fludrocortisone Patient with known h/o vertigo after discussion with PCP. + Sera Hallpike on the left. Continue with scheduled meclizine, will discharge with prescription Advised to do vestibular therapy as outpatient (2) Sinus arrhythmia Code(s): I49.9 - Cardiac arrhythmia, unspecified Status: Acute Plan: This is a new diagnosis, according to PCP records. Echo : EF 55-60%, trace MR Cardiology consulted; recommends to continue to control blood pressure EKG demonstrated sinus arrhythmia and troponins are reassuring. (3) Hypertension Code(s): I10 - Essential (primary) hypertension Status: Acute Plan: BP well controlled overnight. 163/67 this morning. Appears to be acute per records from PCP. We will discharge on home lisinopril and new prescription of amlodipine Sent to follow-up with PCP for careful titration of blood pressure (4) Near syncope Code(s): R55 - Syncope and collapse Status: Acute Plan: See plan above under vertigo (5) Hyperthyroidism Code(s): E05.90 - Thyrotoxicosis, unspecified without thyrotoxic crisis or storm Status: Chronic Plan: Pt with TSH of 3.88 in November 2017. TSH low and Free T4 WNL. Pt may benefit from outpatient endocrinology follow up. Uncertain if patient is taking her medications correctly, as she is unable to provide the names of her medications. This may be contributing to patient's symptoms. <Patience House - 05/06/18 11:24> - Assessment and Plan Discharge Planning: Okay for DC today Follow-up with PT f/u with vestibular therapy f/u with cardiology f/u with Endocrine <Patience House - 05/06/18 11:36> - Attending Attestation Patient seen and examined this morning, discussed with Dr. House. I agree with assessment and management as documented and discussed with me. BPs have improved. Discharge home today. Pt was counselled regarding orthostasis and how to safely change positions. <Ning Rivers - 05/06/18 16:57> <Patience House - Last Filed: 05/06/18 11:24> (3) Hypertension Qualifiers: Hypertension type: unspecified Qualified Code(s): I10 - Essential (primary) hypertension <Ning Rivers - Last Filed: 05/06/18 16:57> (3) Hypertension Qualifiers: Hypertension type: unspecified Qualified Code(s): I10 - Essential (primary) hypertension <Patience House - Last Filed: 05/06/18 11:24> (3) Hypertension Qualifiers: Hypertension type: unspecified Qualified Code(s): I10 - Essential (primary) hypertension <Ning Rivers - Last Filed: 05/06/18 16:57> (3) Hypertension Qualifiers: Hypertension type: unspecified Qualified Code(s): I10 - Essential (primary) hypertension
[2018-05-06 08:30] LABS: Alkaline Phosphatase 89 U/L (45-117); Total Protein 6.1 g/dL (6.4-8.2)
--- NOTE | 2018-05-06 10:02 | P.DCO ---
- Physical Therapy Order: Evaluate and treat - Case Management Consult Yes - Certification I have seen patient Minerva Stein on 05/06/18. My clinical findings support the need for the requested home health care services because: Please see pt 2x/week for BP checks. Pt has severe orthostatic hypotension and is a fall risk. High risk of falls I certify that my clinical findings support that this patient is homebound because: Unsteady gait/balance
[2018-05-06] MEDS: Polyethylene Glycol 3350 17 GM Packet PO SCH (11:16)
[2018-05-06] MEDS: Lisinopril 5 MG Tablet PO SCH (11:17)
[2018-05-06] MEDS: amLODIPine 5 MG Tablet PO SCH (11:18)
--- NOTE | 2018-05-06 12:43 | P.PNCA ---
Subjective Interval history: alert in nad Physical Exam Vital signs: Vital Signs 05/05/18 16:00 05/05/18 20:00 05/06/18 00:00 Temperature 97.7 F 98.7 F 98.4 F Pulse Rate 83 83 75 Respiratory Rate 12 20 19 Blood Pressure 163/80 H 131/63 141/67 H Pulse Oximetry 95 93 L 94 L 05/06/18 04:00 05/06/18 07:33 Temperature 98.2 F 97.9 F Pulse Rate 71 74 Respiratory Rate 19 12 Blood Pressure 149/70 H 163/67 H Pulse Oximetry 98 90 L Intake & Output 05/05/18 05/06/18 05/06/18 18:59 06:59 18:59 Other: # Voids 4 Date of Last Bowel Movement 05/05/18 # Bowel Movements 3 Assessment and Plan - Assessment (1) Near syncope Code(s): R55 - Syncope and collapse Status: Acute (2) Hypertension Code(s): I10 - Essential (primary) hypertension Status: Acute - Plan 1.) Near syncope - due to hypotension and labile bp, bp appears to be more stable on current meds, patient to f/u with me next week (2) Hypertension Qualifiers: Hypertension type: unspecified Qualified Code(s): I10 - Essential (primary) hypertension
== END 2018-05-06 12:42 | disposition home or self-care (01) ==
LOC: NEPD 11:14 → NEDA 11:14 → NEPHCDU 17:36
PROVIDERS: ADMIT Family Medicine; ATTEND Family Medicine
DX: I50.9 Heart failure, unspecified; Z96.643 Presence of artificial hip joint, bilateral; E03.9 Hypothyroidism, unspecified; I48.91 Unspecified atrial fibrillation; R73.9 Hyperglycemia, unspecified; Z85.038 Personal history of other malignant neoplasm of large intestine; R55 Syncope and collapse; E78.00 Pure hypercholesterolemia, unspecified; I11.0 Hypertensive heart disease with heart failure; N28.9 Disorder of kidney and ureter, unspecified; Z87.891 Personal history of nicotine dependence; J44.9 Chronic obstructive pulmonary disease, unspecified; Z96.659 Presence of unspecified artificial knee joint; C18.9 Malignant neoplasm of colon, unspecified; E78.5 Hyperlipidemia, unspecified; I65.29 Occlusion and stenosis of unspecified carotid artery; E05.90 Thyrotoxicosis, unspecified without thyrotoxic crisis or storm